=== PATIENT | female | born 1935 | race Caucasian/White ===

== ENCOUNTER → 2018-03-07 17:37 | Outpatient (CLI) | payer MEDICARE, SELFPAY ==
--- NOTE | 2018-03-07 | DI.MRI.S_ITS ---
PROCEDURE: MR KNEE RT WO CON INDICATIONS: RIGHT KNEE PAIN TECHNIQUE: Noncontrast sagittal PD fast spin echo and T2 fast spin echo with fat saturation, sagittal 3-D FLASH with fat saturation; coronal T1 spin echo and PD fast spin echo with fat saturation, and axial PD fast spin echo with fat saturation through the knee. COMPARISON: None. FINDINGS: Image quality: Excellent. Menisci: Truncated appearance of medial meniscus is seen with medial displacement medial meniscus bowing medial collateral ligament. Finding is suggestive of chronic complex tear involving body and posterior horn of medial meniscus versus prior partial meniscectomy. There is also oblique tear involving anterior horn and body of lateral meniscus extending to inferior articulating surface. Peripheral displacement lateral meniscus is also seen. The meniscal root ligaments appear intact. Cruciate ligaments: No normal anterior cruciate ligament is identified suggestive of chronic ACL rupture. Posterior cruciate ligament is intact. Medial structures: Low-grade proximal MCL sprain near its femoral insertion is noted. The posterior oblique ligament, semimembranosus tendon insertions, oblique popliteal ligament, and meniscocapsular junction appear intact. Visualized portions of the pes anserinus tendons appear normal. No abnormal bursal fluid. Lateral structures: The lateral collateral ligament, long and short heads of the biceps femoris tendon appear intact. The popliteus tendon appears normal; the popliteofibular ligament appears intact. The posterosuperior and anteroinferior popliteomeniscal fascicles appear intact. The arcuate and fabellofibular ligaments appear intact, on either side of the lateral inferior geniculate artery. Iliotibial band appears normal. Anterior structures: The quadriceps and patellar tendons appear intact. Patellar alignment is normal. No femoral trochlear dysplasia or ventral trochlear prominence. No edema in the infrapatellar fat pad. Bones and cartilage: There is [id number] tricompartmental osteoarthritis more prominent in the medial femorotibial compartment with loss of articulating cartilage is, subchondral sclerosis and edema, and marginal osteophyte formation. The patella cartilage is grossly intact. Joint space: There is moderate amount of joint effusion, no gross loose body.. No Barton's cyst. Normal appearing synovial plicae are incidentally noted. IMPRESSION: 1. Moderate to severe tricompartmental osteoarthritis most prominent in medial femoral tibial compartment. Moderate amount of joint effusion. No gross loose body. No fracture or dislocation. 2. Truncated appearance of medial meniscus which may indicate chronic complex tear versus partial meniscectomy involving body and posterior horn of medial meniscus. There is also complex oblique tear involving anterior horn and body of lateral meniscus extending to inferior articulating surface. 3. Nonvisualization of normal ACL fibers suggestive of chronic ACL rupture. PCL is grossly intact. 4. Low-grade proximal MCL sprain. Dictated by: Alton Thomason M.D. on 03/08/2018 at 8:33 Approved by: Alton Thomason M.D. on 03/08/2018 at 8:56
== END ==
PROVIDERS: PCP Family Medicine; Visit Provider Family Medicine
DX: M25.561 Pain in right knee (principal)
CPT/HCPCS: 73721

== ENCOUNTER → 2021-05-05 13:34 | Outpatient (CLI) | payer MEDICARE, SELFPAY ==
[2021-05-05 19:25] LABS: Add Manual Diff / Slide Review NO; Basophils Absolute Auto 100 /uL (0-100); Basophils Percent Auto 1.1 % (0-2); Eosinophils Absolute Auto 100 /uL (0-450); Eosinophils Percent Auto 2.7 % (2-4); Hematocrit 36.9 % (36-46); Hemoglobin 12.8 g/dL (12.0-16.0); Lymphocytes Absolute Auto 1600 /uL (1100-4500); Lymphocytes Percent Auto 34.2 % (25-40); Mean Corpuscular HGB Conc 34.6 % (30-36); Mean Corpuscular Hemoglobin 32.1 PG (26-34); Mean Corpuscular Volume 92.7 fL (80-100); Monocytes Absolute Auto 500 /uL (0-900); Monocytes Percent Auto 10.6 % (3-14); Neutrophils Absolute Auto 2400 /uL (1500-7000); Neutrophils Percent Auto 51.4 % (50-75); Platelet Count 233 X10^3/uL (150-400); Red Blood Cell Count 3.98 X10^6/uL (4.0-5.2); White Blood Cell Count 4.8 X10^3/uL (4.5-11.0)
[2021-05-05 19:33] LABS: HEMOLYSIS < 15 (0-50); Iron 92 ug/dL (37-170)
[2021-05-05 19:36] LABS: Alanine Aminotransferase 19 IU/L (<35); Albumin 4.4 g/dL (3.5-5.0); Albumin Globulin Ratio 1.7 (1.0-2.8); Alkaline Phosphatase 56 U/L (38-126); Aspartate Aminotransferase 26 IU/L (14-36); BUN Creatinine Ratio 18.9 (6-22); Bilirubin Total 0.4 mg/dL (0.2-1.3); Blood Urea Nitrogen 18 mg/dL (7-17); Calcium 9.9 mg/dL (8.4-10.2); Carbon Dioxide 32 mmol/L (22-32); Chloride 95 mmol/L (98-107); Globulin 2.6 g/dL (1.7-4.1); Glucose 96 mg/dL (80-110); HEMOLYSIS < 15 (0-50); Potassium 4.6 mmol/L (3.4-5.1); Sodium 131 mmol/L (137-145)
[2021-05-05 19:41] LABS: High Sensitivity CRP - Cardiac 2.4 mg/L (1.0-3.0)
[2021-05-05 19:44] LABS: Percent Iron Saturation 30 % (15-50); Total Iron Binding Capacity 308 ug/dL (265-497); Transferrin 247 mg/dL (206-381)
[2021-05-05 19:51] LABS: Free T4, Direct Thyroxine 1.26 ng/dL (0.78-2.19)
[2021-05-05 19:52] LABS: Free T3, Triiodothyronine Free 3.97 pg/mL (2.77-5.27)
[2021-05-05 19:55] LABS: Vitamin D 25 Hydroxy (D3) 69.3 ng/mL (30.0-100.0)
[2021-05-05 20:10] LABS: Ferritin 74 ng/mL (11-264)
[2021-05-07 08:47] LABS: Triiodothyronine T3 Total 102 ng/dL (71-180)
[2021-05-07 17:02] LABS: Anti Thyroglobulin Antibody <1.0 IU/mL (0.0-0.9); Thyroid Peroxidase Antibodies <8 IU/mL (0-34)
[2021-05-10 19:51] LABS: Triiodothyronine T3 Reverse 36.6 ng/dL (9.2-24.1)
== END ==
PROVIDERS: PCP Family Medicine; Visit Provider Family Medicine
DX: E03.9 Hypothyroidism, unspecified (principal); Z77.120 Contact with and (suspected) exposure to mold (toxic); F41.9 Anxiety disorder, unspecified; R53.82 Chronic fatigue, unspecified; G89.29 Other chronic pain; E63.9 Nutritional deficiency, unspecified
CPT/HCPCS: 80053; 82306; 82728; 83540; 83550; 84439; 84443; 84480; 84481; 84482; 85025; 86140; 86376; 86800

== ENCOUNTER → 2021-06-07 12:40 | Outpatient (CLI) | payer MEDICARE, SELFPAY ==
[2021-06-07 19:19] LABS: Alanine Aminotransferase 18 IU/L (<35); Albumin 4.1 g/dL (3.5-5.0); Albumin Globulin Ratio 1.6 (1.0-2.8); Alkaline Phosphatase 52 U/L (38-126); Aspartate Aminotransferase 25 IU/L (14-36); BUN Creatinine Ratio 22.7 (6-22); Bilirubin Total 0.2 mg/dL (0.2-1.3); Blood Urea Nitrogen 22 mg/dL (7-17); Calcium 9.6 mg/dL (8.4-10.2); Carbon Dioxide 32 mmol/L (22-32); Chloride 98 mmol/L (98-107); Estimated Glomerular Filt Rate 54.7 mL/min (>60); Globulin 2.6 g/dL (1.7-4.1); Glucose 98 mg/dL (80-110); HEMOLYSIS < 15 (0-50); Potassium 4.4 mmol/L (3.4-5.1); Sodium 133 mmol/L (137-145); Total Protein 6.7 g/dL (6.3-8.2)
== END ==
PROVIDERS: PCP Family Medicine; Referring Provider Family Medicine; Visit Provider Family Medicine
DX: E03.9 Hypothyroidism, unspecified (principal); E63.9 Nutritional deficiency, unspecified; F41.9 Anxiety disorder, unspecified; R53.82 Chronic fatigue, unspecified; Z77.120 Contact with and (suspected) exposure to mold (toxic)
CPT/HCPCS: 80053

== ENCOUNTER → 2021-06-28 13:00 | Outpatient (CLI) | payer MEDICARE, SELFPAY ==
[2021-06-28 18:41] LABS: Alanine Aminotransferase 35 IU/L (<35); Albumin 4.3 g/dL (3.5-5.0); Albumin Globulin Ratio 1.7 (1.0-2.8); Alkaline Phosphatase 49 U/L (38-126); Aspartate Aminotransferase 31 IU/L (14-36); Bilirubin Total 0.3 mg/dL (0.2-1.3); Blood Urea Nitrogen 20 mg/dL (7-17); Calcium 9.6 mg/dL (8.4-10.2); Carbon Dioxide 30 mmol/L (22-32); Chloride 97 mmol/L (98-107); Cholesterol 262 mg/dL (140-199); Estimated Glomerular Filt Rate > 60.0 mL/min (>60); Globulin 2.6 g/dL (1.7-4.1); Glucose 132 mg/dL (80-110); HDL Cholesterol 46 mg/dL (40-60); HEMOLYSIS < 15 (0-50); LDL Cholesterol Calculated 183 mg/dL (<100); Potassium 4.4 mmol/L (3.4-5.1); Sodium 133 mmol/L (137-145); Total Protein 6.9 g/dL (6.3-8.2); Triglycerides 163 mg/dL (35-150)
== END ==
PROVIDERS: PCP Family Medicine; Visit Provider Family Medicine
DX: E03.9 Hypothyroidism, unspecified (principal); I10 Essential (primary) hypertension
CPT/HCPCS: 80053; 80061; 82533

== ENCOUNTER → 2021-07-01 12:02 | Outpatient (CLI) | payer MEDICARE, SELFPAY ==
[2021-07-01 19:26] LABS: Collection Time Urine 24 Hours; Creatinine 24 Hour Urine 680 mg/day (800-1800); Creatinine Urine Random 45.3 mg/dL; Total Volume Urine 1500 mL
[2021-07-04 14:54] LABS: Creatinine, 24 Urine 603 mg/24 hr (800-1800); Creatinine,Urine 40.2 mg/dL (Not Estab.); Dopamine, Ur 24hr 96 ug/24 hr (0-510); Epinephrine, U 24hr 3 ug/24 hr (0-20); Norepinephrine Ur 24hr 26 ug/24 hr (0-135)
== END ==
PROVIDERS: PCP Family Medicine; Visit Provider Nurse Practitioner
DX: I10 Essential (primary) hypertension (principal)
CPT/HCPCS: 82384; 82570

== ENCOUNTER → 2021-09-12 11:15 | Outpatient (CLI) | payer MEDICARE, SELFPAY ==
[2021-09-12 18:40] LABS: Alanine Aminotransferase 29 IU/L (<35); Albumin 4.4 g/dL (3.5-5.0); Albumin Globulin Ratio 1.6 (1.0-2.8); Alkaline Phosphatase 51 U/L (38-126); Aspartate Aminotransferase 26 IU/L (14-36); BUN Creatinine Ratio 21.7 (6-22); Bilirubin Total 0.4 mg/dL (0.2-1.3); Blood Urea Nitrogen 18 mg/dL (7-17); Calcium 9.5 mg/dL (8.4-10.2); Carbon Dioxide 27 mmol/L (22-32); Chloride 97 mmol/L (98-107); Estimated Glomerular Filt Rate > 60 mL/min (>60); Globulin 2.8 g/dL (1.7-4.1); Glucose 93 mg/dL (80-110); HEMOLYSIS < 15 (0-50); Potassium 4.4 mmol/L (3.4-5.1); Sodium 134 mmol/L (137-145); Total Protein 7.2 g/dL (6.3-8.2); Uric Acid 3.8 mg/dL (2.5-6.2)
[2021-09-12 19:01] LABS: Free T3, Triiodothyronine Free 4.01 pg/mL (2.77-5.27); Free T4, Direct Thyroxine 1.42 ng/dL (0.78-2.19); Progesterone, Total 0.57 ng/mL
[2021-09-12 19:11] LABS: Thyroid Stimulating Hormone 3.45 uIU/mL (0.47-4.68)
[2021-09-12 19:13] LABS: Estradiol, Total 20.8 pg/mL
[2021-09-13 03:59] LABS: Homocysteine 13.1 umol/L (0.0-21.3)
[2021-09-13 06:33] LABS: Sex Hormone Binding Globulin 88.4 nmol/L (17.3-125.0); Triiodothyronine T3 Total 128 ng/dL (71-180)
[2021-09-13 09:04] LABS: Dehydroepiandrosterone Sulfate 99.5 ug/dL (13.9-142.8)
[2021-09-13 17:17] LABS: Cadmium, Blood 0.6 ug/L (0.0-1.2); Lead, Blood < 1 ug/dL (0-4); Mercury, Blood 2.6 ug/L (0.0-14.9)
[2021-09-13 18:27] LABS: Zinc 52 ug/dL (44-115)
[2021-09-16 06:28] LABS: Vitamin B6 20.9 ug/L (3.4-65.2)
[2021-09-16 11:01] LABS: Triiodothyronine T3 Reverse 22.2 ng/dL (9.2-24.1)
[2021-09-18 19:45] LABS: Renin Activity 0.242 ng/mL/hr (0.167-5.380)
[2021-09-20 11:41] LABS: Percent Free Testosterone 1.59 % (0.50-2.80); Testosterone Free 0.21 ng/dL (0.10-0.85); Testosterone Total 12.9 ng/dL (7.0-40.0)
[2021-09-22 13:29] LABS: Dehydroepiandrosterone (DHEA) 99.5
== END ==
PROVIDERS: Family Medicine; PCP Family Medicine
DX: I10 Essential (primary) hypertension (principal); E03.9 Hypothyroidism, unspecified; E63.9 Nutritional deficiency, unspecified; R05.8 Other specified cough; R53.82 Chronic fatigue, unspecified; Z77.120 Contact with and (suspected) exposure to mold (toxic)
CPT/HCPCS: 80053; 82088; 82175; 82300; 82525; 82542; 82627; 82670; 83090; 83655; 83735; 83825; 84144; 84207; 84244; 84270; 84402; 84403; 84439; 84443; 84480; 84481; 84482; 84550; 84630

== ENCOUNTER → 2021-10-12 14:00 | Outpatient (CLI) | payer MEDICARE, SELFPAY ==
[2021-10-12 18:54] LABS: Add Manual Diff / Slide Review NO; Basophils Absolute Auto 0 /uL (0-100); Basophils Percent Auto 0.9 % (0-2); Eosinophils Absolute Auto 100 /uL (0-450); Eosinophils Percent Auto 1.7 % (2-4); Hematocrit 37.4 % (36-46); Hemoglobin 12.9 g/dL (12.0-16.0); Lymphocytes Absolute Auto 1300 /uL (1100-4500); Lymphocytes Percent Auto 24.2 % (25-40); Mean Corpuscular HGB Conc 34.4 % (30-36); Mean Corpuscular Hemoglobin 32.2 PG (26-34); Mean Corpuscular Volume 93.5 fL (80-100); Monocytes Absolute Auto 500 /uL (0-900); Monocytes Percent Auto 8.3 % (3-14); Neutrophils Absolute Auto 3600 /uL (1500-7000); Neutrophils Percent Auto 64.9 % (50-75); Platelet Count 267 X10^3/uL (150-400); Red Cell Distribution Width 14.4 % (11.6-14.8); White Blood Cell Count 5.5 X10^3/uL (4.5-11.0)
[2021-10-12 19:01] LABS: Alanine Aminotransferase 17 IU/L (<35); Albumin 4.5 g/dL (3.5-5.0); Albumin Globulin Ratio 1.4 (1.0-2.8); Alkaline Phosphatase 45 U/L (38-126); Aspartate Aminotransferase 56 IU/L (14-36); BUN Creatinine Ratio 23.3 (6-22); Bilirubin Total 0.5 mg/dL (0.2-1.3); Blood Urea Nitrogen 21 mg/dL (7-17); Calcium 9.4 mg/dL (8.4-10.2); Carbon Dioxide 24 mmol/L (22-32); Chloride 96 mmol/L (98-107); Estimated Glomerular Filt Rate > 60 mL/min (>60); Globulin 3.3 g/dL (1.7-4.1); Glucose 113 mg/dL (80-110); HEMOLYSIS 21 (0-50); Lipase 120 U/L (23-300); Potassium 3.8 mmol/L (3.4-5.1); Sodium 133 mmol/L (137-145); Total Protein 7.8 g/dL (6.3-8.2)
[2021-10-14 12:36] LABS: Interpretation Negative (Negative)
== END ==
PROVIDERS: PCP Family Medicine; Visit Provider Physician Assistant
DX: R10.9 Unspecified abdominal pain (principal); Z86.19 Personal history of other infectious and parasitic diseases
CPT/HCPCS: 80053; 83013; 83690; 85025

== ENCOUNTER → 2021-10-31 13:24 | Outpatient (CLI) | payer MEDICARE, SELFPAY ==
[2021-10-31 20:06] LABS: Add Manual Diff / Slide Review NO; Basophils Absolute Auto 0 /uL (0-100); Basophils Percent Auto 0.6 % (0-2); Eosinophils Absolute Auto 100 /uL (0-450); Eosinophils Percent Auto 1.4 % (2-4); Lymphocytes Absolute Auto 1400 /uL (1100-4500); Lymphocytes Percent Auto 26.5 % (25-40); Mean Corpuscular HGB Conc 34.2 % (30-36); Mean Corpuscular Hemoglobin 31.8 PG (26-34); Mean Corpuscular Volume 92.8 fL (80-100); Monocytes Absolute Auto 500 /uL (0-900); Monocytes Percent Auto 9.5 % (3-14); Neutrophils Absolute Auto 3400 /uL (1500-7000); Platelet Count 256 X10^3/uL (150-400); Red Blood Cell Count 3.77 X10^6/uL (4.0-5.2); Red Cell Distribution Width 14.1 % (11.6-14.8); White Blood Cell Count 5.5 X10^3/uL (4.5-11.0)
[2021-10-31 20:31] LABS: Alanine Aminotransferase 18 IU/L (<35); Albumin 4.5 g/dL (3.5-5.0); Albumin Globulin Ratio 1.6 (1.0-2.8); Alkaline Phosphatase 55 U/L (38-126); Aspartate Aminotransferase 24 IU/L (14-36); BUN Creatinine Ratio 22.1 (6-22); Bilirubin Total 0.4 mg/dL (0.2-1.3); Blood Urea Nitrogen 19 mg/dL (7-17); Calcium 9.7 mg/dL (8.4-10.2); Carbon Dioxide 26 mmol/L (22-32); Chloride 98 mmol/L (98-107); Estimated Glomerular Filt Rate > 60 mL/min (>60); Gamma Glutamyl Transpeptidase 18 U/L (12-43); Globulin 2.8 g/dL (1.7-4.1); Glucose 114 mg/dL (80-110); HEMOLYSIS < 15 (0-50); Potassium 4.4 mmol/L (3.4-5.1); Sodium 131 mmol/L (137-145); Total Protein 7.3 g/dL (6.3-8.2)
[2021-11-01 08:11] LABS: Homocysteine 12.5 umol/L (0.0-21.3)
[2021-11-01 16:08] LABS: Cadmium, Blood 0.6 ug/L (0.0-1.2); Lead, Blood < 1 ug/dL (0-4); Mercury, Blood 3.1 ug/L (0.0-14.9)
[2021-11-02 13:34] LABS: Zinc,RBC 1398 ug/dL (878-1660)
== END ==
PROVIDERS: PCP Family Medicine; Visit Provider Family Medicine
DX: I10 Essential (primary) hypertension (principal); C44.91 Basal cell carcinoma of skin, unspecified; E63.9 Nutritional deficiency, unspecified; F41.9 Anxiety disorder, unspecified; K59.9 Functional intestinal disorder, unspecified; R53.82 Chronic fatigue, unspecified
CPT/HCPCS: 80053; 82175; 82300; 82977; 83090; 83655; 83825; 84630; 85025

== ENCOUNTER → 2021-11-01 08:00 | Outpatient (CLI) | payer MEDICARE, SELFPAY ==
[2021-11-01 21:26] LABS: Adenovirus F 40/41 Not Detected (Not Detect); Astrovirus Not Detected (Not Detect); Campylobacter Not Detected (Not Detect); Clostridium difficile toxin AB Not Detected (Not Detect); Cryptosporidium Not Detected (Not Detect); Cyclospora cayetanensis Not Detected (Not Detect); Entamoeba histolytica Not Detected (Not Detect); Enteroaggregative E.coli Not Detected (Not Detect); Enteropathogenic E.coli Not Detected (Not Detect); Enterotoxigenic E.coli It/st Not Detected (Not Detect); Giardia lamblia Not Detected (Not Detect); Norovirus GI/GII Not Detected (Not Detect); Plesiomonsa shigelloides Not Detected (Not Detect); Rotavirus A Not Detected (Not Detect); Salmonella Not Detected (Not Detect); Sapovirus Not Detected (Not Detect); Shiga-like toxin-prod E.coli Not Detected (Not Detect); Shigella/Enteroinvasive E.coli Not Detected (Not Detect); Vibrio Not Detected (Not Detect); Vibrio cholerae Not Detected (Not Detect); Yersinia enterocolitica Not Detected (Not Detect)
[2021-11-02 08:52] LABS: Fecal Immunochemical Test Negative (Negative)
== END ==
PROVIDERS: PCP Family Medicine; Visit Provider Family Medicine
DX: R10.9 Unspecified abdominal pain (principal); F41.9 Anxiety disorder, unspecified; G47.9 Sleep disorder, unspecified; G89.29 Other chronic pain; K59.9 Functional intestinal disorder, unspecified; R53.82 Chronic fatigue, unspecified
CPT/HCPCS: 82274; 87205; 87507

== ENCOUNTER → 2021-11-07 09:59 | Outpatient (CLI) | payer MEDICARE, SELFPAY | PROVIDERS: PCP Family Medicine; Visit Provider Family Medicine | DX: F41.9 Anxiety disorder, unspecified (principal); G47.9 Sleep disorder, unspecified; G89.29 Other chronic pain; K59.9 Functional intestinal disorder, unspecified; R10.9 Unspecified abdominal pain; R53.82 Chronic fatigue, unspecified | CPT/HCPCS: 82710 ==

== ENCOUNTER → 2021-11-18 11:47 | Outpatient (CLI) | payer MEDICARE, SELFPAY ==
[2021-11-25 01:14] LABS: Ceruloplasmin 24.1 mg/dL (19.0-39.0)
== END ==
PROVIDERS: PCP Family Medicine; Visit Provider Family Medicine
DX: D64.9 Anemia, unspecified (principal); E63.9 Nutritional deficiency, unspecified; F41.9 Anxiety disorder, unspecified; G89.29 Other chronic pain; I10 Essential (primary) hypertension; K59.9 Functional intestinal disorder, unspecified; R53.82 Chronic fatigue, unspecified; R82.90 Unspecified abnormal findings in urine
CPT/HCPCS: 82390; 82525

== ENCOUNTER → 2021-11-22 11:32 | Outpatient (CLI) | payer MEDICARE, SELFPAY ==
[2021-11-22 18:48] LABS: Collection Time Urine 24 Hours; Creatinine 24 Hour Urine 1056 mg/day (800-1800); Total Volume Urine 2200 mL
[2021-12-01 15:00] LABS: Copper, Urine 7; Creatinine, Urine 0.48
[2021-12-01 15:01] LABS: Copper/Creatinine 15
[2021-12-01 15:04] LABS: Creatinine, Urine 0.46
[2021-12-01 15:05] LABS: Inorg Arsenic/ Creat Ratio <22
== END ==
PROVIDERS: PCP Family Medicine; Visit Provider Family Medicine
DX: D64.9 Anemia, unspecified (principal); E63.9 Nutritional deficiency, unspecified; F41.9 Anxiety disorder, unspecified; G89.29 Other chronic pain; I10 Essential (primary) hypertension; K59.9 Functional intestinal disorder, unspecified; R53.82 Chronic fatigue, unspecified; R82.90 Unspecified abnormal findings in urine
CPT/HCPCS: 82175; 82525; 82570

== ENCOUNTER 2022-07-13 12:13 | Inpatient (IN) | payer MEDICARE, SELFPAY ==
[2022-07-13] VITALS (24 sets, daily range): BP systolic 139–199; BP diastolic 65–127; PULSE 50–82; RESP 8–22; TEMP 36.5–36.8; O2SAT 95–100; BMI 23.1; BMI 23.6
--- NOTE | 2022-07-13 12:30 | ED_ITS ---
HPI - General Adult General Chief complaint: Syncope Stated complaint: Near syncope,1 week of generalized weakness Time Seen by Provider: 07/13/22 12:18 History of Present Illness HPI narrative: 86-year-old female nonsmoker with history of hypertension, osteoarthritis, H pylori, generalized anxiety and hypothyroid presents by air medical transport for evaluation of dizziness, lightheadedness and fatigue along with near-syncope and blood pressure in the 80s. She is felt generally unwell for least the past few days. At 1 point today she was change position and attempted to stand up and nearly passed out. EMS evaluated and her to be orthostatic with a blood pressure drop to the 80s upon standing. She denies any fever chills. She has no chest pain or shortness of breath. Related Data Home Medications Medication Instructions Recorded Confirmed atenolol 100 mg tablet 100 mg PO DAILY 09/06/21 07/13/22 benzonatate 100 mg capsule 100 mg PO TID PRN Cough 09/06/21 07/13/22 thyroid (pork) 15 mg tablet (TRAFFIC SERGEANT 15 mg PO DAILY 09/06/21 07/13/22 Thyroid) thyroid (pork) 90 mg tablet (TRAFFIC SERGEANT 90 mg PO DAILY 09/06/21 07/13/22 Thyroid) hydralazine 50 mg tablet 50 mg PO Q6H 11/17/21 07/13/22 losartan 100 mg tablet 50 mg PO BID 11/17/21 07/13/22 Previous Rx's Medication Instructions Recorded lorazepam 0.5 mg tablet 0.5 mg PO .hs prn #30 tabs 01/19/22 hylan g-f 20 16 mg/2 mL 16 mg (2 mL) intra-articular ONCE 05/31/22 intra-articular syringe (Synvisc) #6 mL Allergies Allergy/AdvReac Type Severity Reaction Status Date / Time amlodipine Allergy Mild Verified 05/27/21 15:05 epinephrine Allergy Mild Verified 06/05/22 13:23 hydrochlorothiazide Allergy Mild Verified 05/27/21 15:05 ciprofloxacin [From CIPRO] Allergy Unknown Verified 05/27/21 15:05 Sulfa (Sulfonamide Allergy Unknown Verified 05/27/21 15:05 Antibiotics) [SULFA (SULFONAMIDE ANTIBIOTICS)] epinipherine AdvReac Severe Palpitation Uncoded 03/06/22 11:00 s Review of Systems Review of Systems Narrative: GENERAL: See HPI HEENT: Denies sinus pain, ear pain, sore throat, difficulty swallowing, dizziness. RESPIRATORY: Denies dyspnea, cough, wheezing, hemoptysis, sputum. CARDIOVASCULAR: Denies chest pain, palpitations, orthopnea, edema, GASTROINTESTINAL: See HPI : Denies dysuria, frequency, incontinence, hematuria, urinary retention. MUSCULOSKELETAL: denies weakness, joint pain, or bony pain SKIN: Denies rash, skin lesions, or other NEUROLOGIC: Denies weakness, headache, numbness, change in speech, confusion, seizures, incoordination. PSYCHIATRIC: No concerning psychosocial issues. 12 point review of systems is negative except for those stated above Patient History Medical History Cervicalgia Chicken pox (~194) Fractures (~194) Heavy menstrual period History of candidiasis Hypothyroidism (~2009) Measles (~194) Mumps (~194) Tension headache (~194) Unilateral primary osteoarthritis, right knee Surgical History Anesthesia History of bunionectomy (~1968) History of cataract removal with insertion of prosthetic lens (~2017) History of oral surgery History of oral surgery (~194) History of tonsillectomy (~1941) [place] teeth removed (~1950) Family History Father History of heart disease Hypertension Mother Breast cancer Mental health problem Family/Other Multiple sclerosis Family/Other Mental health problem Social History household members: none Smoking Status: Never smoker alcohol intake: never Smoking Status: Never smoker Exam Narrative Exam Narrative: GENERAL: 86 year old patient appears stated age. Well-developed patient, in mild distress. HEAD: Atraumatic. Normocephalic. EYES: Pupils equal round and reactive. Extraocular motions intact. No scleral icterus. No injection or drainage. ENT: Nose without bleeding, purulent drainage. Throat without erythema, tonsillar hypertrophy or exudate. Airway patent. NECK: Trachea midline. Non tender CARDIOVASCULAR: Regular rate and rhythm without murmurs, gallops, or rubs. RESPIRATORY: Clear to auscultation. Breath sounds equal bilaterally. No wheezes, rales, or rhonchi. GASTROINTESTINAL: Abdomen soft, non-tender, nondistended. RECTAL: Heme +, performed with patient permission and female nursing telephoto engineer EXTREMITIES: No edema or joint tenderness. BACK: Nontender without deformity or crepitance. No flank tenderness. NEURO: AOx3. SKIN: No rash or erythema of visible areas Initial Vital Signs Initial Vital Signs: Vital Signs Pulse Rate 55 L 07/13/22 12:19 Pulse Oximetry 100 07/13/22 12:19 Course Orders Ordered: Acetaminophen (Acetaminophen 325 Mg Tablet) 650 mg PO Q6H PRN PRN Reason: Fever/Mild Pain (1-3) Naloxone HCl (Naloxone 0.4 Mg/Ml Vial) 0.2 mg IV Q2MIN PRN PRN Reason: Opiate Reversal Stored In Pharmacy 1 each PO PRN PRN PRN Reason: PROTOCOL Thyroid, Desiccated (15mg Tablet) 1 each PO DAILY@0700 [facility] Last Admin: 07/14/22 13:06 Dose: 1 each Documented By: KEITH Thyroid, Desiccated (90mg Tablet) 1 each PO DAILY@0700 [facility] Last Admin: 07/14/22 13:05 Dose: 1 each Documented By: KEITH Ondansetron HCl (Ondansetron 4 Mg/2 Ml Inj) 4 mg IV Q8HR PRN PRN Reason: Nausea And Vomiting Pantoprazole Sodium (Pantoprazole 40 Mg Vial) 40 mg IV BID [facility] Last Admin: 07/14/22 09:59 Dose: 40 mg Documented By: KEITH Sodium Chloride (Sodium Chloride 0.9% Flush) 10 ml IV PRN PRN PRN Reason: Flush Sodium Chloride (Sodium Chloride 0.9% Flush) 10 ml IV BID [facility] Last Admin: 07/14/22 09:59 Dose: 10 ml Documented By: KEITH Discontinued Medications Sodium Chloride (Normal Saline 0.9%) 1,000 mls @ 150 mls/hr IV CONT [facility] Last Infusion: 07/13/22 19:04 Dose: 0 mls/hr Documented By: Admin: 07/13/22 13:12 Dose: 150 mls/hr Documented By: MELI Pantoprazole Sodium (Pantoprazole 40 Mg Vial) 40 mg IV BID [facility] Last Admin: 07/13/22 19:59 Dose: 40 mg Documented By: MP Polyethylene Glycol/Electrolytes (Tpi0817/Sod Sulf,Bicarb,Cl/Kcl 4,000 Ml Solution) 4,000 ml PO NOW ONE Stop: 07/14/22 12:32 Thyroid (Thyroid, Pork 30 Mg Tablet) 15 mg PO DAILY RENEE Thyroid (Thyroid, Pork 30 Mg Tablet) 105 mg PO DAILY RENEE Last Admin: 07/14/22 10:02 Dose: Not Given Documented By: KEITH Thyroid (Thyroid, Pork 30 Mg Tablet) 15 mg PO DAILY RENEE Vital Signs Vital signs: Vital Signs - 8 hr 07/13/22 12:23 07/13/22 12:19 07/13/22 12:30 Temperature 97.7 F Pulse Rate 54 L 55 L 69 Respiratory Rate 16 22 Blood Pressure 168/74 H Pulse Oximetry 99 100 99 Oxygen Delivery Method Room Air 07/13/22 12:35 07/13/22 12:35 Temperature Pulse Rate 50 L Respiratory Rate Blood Pressure 165/71 H Pulse Oximetry 99 Oxygen Delivery Method Medical Decision Making Lab Data 07/13/22 12:30 07/13/22 12:30 Labs: Lab Results 07/13/22 07/13/22 07/13/22 Range/Units 12:30 12:30 12:30 WBC 4.2 L (4.5-11.0) X10^3/uL RBC 2.50 L (4.0-5.2) X10^6/uL Hgb 8.0 L (12.0-16.0) g/dL Hct 23.5 L (36-46) % MCV 94.0 (80-100) fL MCH 32.2 (26-34) PG MCHC 34.2 (30-36) % RDW 14.0 (11.6-14.8) % Plt Count 206 (150-400) X10^3/uL Neut % (Auto) 68.8 (50-75) % Lymph % (Auto) 20.9 L (25-40) % Calvert % (Auto) 8.0 (3-14) % Eos % (Auto) 1.5 L (2-4) % Baso % (Auto) 0.8 (0-2) % Neut # (Auto) 2900 (2050-7334) /uL Lymph # (Auto) 900 L (6112-0881) /uL Calvert # (Auto) 300 (0-900) /uL Eos # (Auto) 100 (0-450) /uL Baso # (Auto) 0 (0-100) /uL Percent Retic (1.1-2.6) % PT (10.1-12.7) SECONDS INR (0.9-1.3) Sodium 129 L (137-145) mmol/L Potassium 4.2 (3.4-5.1) mmol/L Chloride 98 (98-107) mmol/L Carbon Dioxide 24 (22-32) mmol/L BUN 24 H (7-17) mg/dL Creatinine 0.66 (0.52-1.04) mg/dL Estimated GFR > 60 (>60) mL/min BUN/Creatinine Ratio 36.4 H (6-22) Glucose 126 H (80-110) mg/dL Calcium 8.6 (8.4-10.2) mg/dL Iron (37-170) ug/dL TIBC (265-497) ug/dL % Saturation (15-50) % Transferrin (206-381) mg/dL Total Bilirubin 0.6 (0.2-1.3) mg/dL AST 33 (14-36) IU/L ALT 24 (<35) IU/L Alkaline Phosphatase 27 L (38-126) U/L Total Creatine Kinase 53 (30-135) U/L CK-MB (CK-2) TNP CK-MB (CK-2) Rel Index TNP Troponin I < 0.012 (0.01-0.034) ng/mL NT-Pro-B Natriuret Pep 612 H (<450) pg/mL Total Protein 6.6 (6.3-8.2) g/dL Albumin 3.9 (3.5-5.0) g/dL Globulin 2.7 (1.7-4.1) g/dL Albumin/Globulin Ratio 1.4 (1.0-2.8) Lipase 108 (23-300) U/L Procalcitonin 0.05 (<0.5) ng/mL Blood Type Antibody Screen Antibody Identification Crossmatch 07/13/22 07/13/22 07/13/22 Range/Units 12:30 12:30 12:30 WBC (4.5-11.0) X10^3/uL RBC (4.0-5.2) X10^6/uL Hgb (12.0-16.0) g/dL Hct (36-46) % MCV (80-100) fL MCH (26-34) PG MCHC (30-36) % RDW (11.6-14.8) % Plt Count (150-400) X10^3/uL Neut % (Auto) (50-75) % Lymph % (Auto) (25-40) % [place]vert % (Auto) (3-14) % Eos % (Auto) (2-4) % Baso % (Auto) (0-2) % Neut # (Auto) (7903-2499) /uL Lymph # (Auto) (5543-2219) /uL Calvert # (Auto) (0-900) /uL Eos # (Auto) (0-450) /uL Baso # (Auto) (0-100) /uL Percent Retic 3.1 H (1.1-2.6) % PT 12.4 (10.1-12.7) SECONDS INR 1.1 (0.9-1.3) Sodium (137-145) mmol/L Potassium (3.4-5.1) mmol/L Chloride (98-107) mmol/L Carbon Dioxide (22-32) mmol/L BUN (7-17) mg/dL Creatinine (0.52-1.04) mg/dL Estimated GFR (>60) mL/min BUN/Creatinine Ratio (6-22) Glucose (80-110) mg/dL Calcium (8.4-10.2) mg/dL Iron 96 (37-170) ug/dL TIBC 266 (265-497) ug/dL % Saturation 36 (15-50) % Transferrin 188 L (206-381) mg/dL Total Bilirubin (0.2-1.3) mg/dL AST (14-36) IU/L ALT (<35) IU/L Alkaline Phosphatase (38-126) U/L Total Creatine Kinase (30-135) U/L CK-MB (CK-2) CK-MB (CK-2) Rel Index Troponin I (0.01-0.034) ng/mL NT-Pro-B Natriuret Pep (<450) pg/mL Total Protein (6.3-8.2) g/dL Albumin (3.5-5.0) g/dL Globulin (1.7-4.1) g/dL Albumin/Globulin Ratio (1.0-2.8) Lipase (23-300) U/L Procalcitonin (<0.5) ng/mL Blood Type Antibody Screen Antibody Identification Crossmatch 07/13/22 07/13/22 Range/Units 14:39 15:43 WBC (4.5-11.0) X10^3/uL RBC (4.0-5.2) X10^6/uL Hgb 7.3 L (12.0-16.0) g/dL Hct 21.3 L (36-46) % MCV (80-100) fL MCH (26-34) PG MCHC (30-36) % RDW (11.6-14.8) % Plt Count (150-400) X10^3/uL Neut % (Auto) (50-75) % Lymph % (Auto) (25-40) % [place] % (Auto) (3-14) % Eos % (Auto) (2-4) % Baso % (Auto) (0-2) % Neut # (Auto) (2182-1957) /uL Lymph # (Auto) (2606-7389) /uL [place] # (Auto) (0-900) /uL Eos # (Auto) (0-450) /uL Baso # (Auto) (0-100) /uL Percent Retic (1.1-2.6) % PT (10.1-12.7) SECONDS INR (0.9-1.3) Sodium (137-145) mmol/L Potassium (3.4-5.1) mmol/L Chloride (98-107) mmol/L Carbon Dioxide (22-32) mmol/L BUN (7-17) mg/dL Creatinine (0.52-1.04) mg/dL Estimated GFR (>60) mL/min BUN/Creatinine Ratio (6-22) Glucose (80-110) mg/dL Calcium (8.4-10.2) mg/dL Iron (37-170) ug/dL TIBC (265-497) ug/dL % Saturation (15-50) % Transferrin (206-381) mg/dL Total Bilirubin (0.2-1.3) mg/dL AST (14-36) IU/L ALT (<35) IU/L Alkaline Phosphatase (38-126) U/L Total Creatine Kinase (30-135) U/L CK-MB (CK-2) CK-MB (CK-2) Rel Index Troponin I (0.01-0.034) ng/mL NT-Pro-B Natriuret Pep (<450) pg/mL Total Protein (6.3-8.2) g/dL Albumin (3.5-5.0) g/dL Globulin (1.7-4.1) g/dL Albumin/Globulin Ratio (1.0-2.8) Lipase (23-300) U/L Procalcitonin (<0.5) ng/mL Blood Type A Negative Antibody Screen Positive Antibody Identification Anti-D Crossmatch See Detail Point of Care Testing Glucose POC 135 Point of care testing: Point of Care Testing Glucose POC 135 MDM Narrative Medical decision making narrative: [86] year old patient presents with generalized weakness, near-syncope, nausea, vomiting Multiple etiologies for patient's symptoms considered including, but not limited to: [Dehydration, electrolyte abnormality, anemia, kidney failure versus other] Prior Charts reviewed in our EMR Primary Historian: patient Labs reviewed and interpreted by myself: Hematocrit noted to be significantly below her baseline, after 2 hours repeat demonstrates further drop, Imaging reviewed: CT of abdomen and pelvis without significant findings Consultations: General surgery consulted given GI bleed resulting in symptomatic anemia, she is happy to be involved in consultation, requests admission to hospitalist Frail elderly female flown here by air medical transport for evaluation weakness, near-syncope and vomiting blood pressure in the field of the 80s. She is found to have symptomatic anemia with dropping hematocrit and will require hospitalization for transfusions, for further stabilization for condition and likely endoscopy Discharge Plan Departure Patient Disposition: Admitted As Inpatient Clinical Impression: Acute GI bleeding, Anemia, Near syncope Admit Date/Time: 07/13/22 16:51 Admit Provider: Jean Felix
--- NOTE | 2022-07-13 12:37 | DI.RAD.S_ITS ---
PROCEDURE: XR CHEST 1V INDICATIONS: weakness TECHNIQUE: One view of the chest was acquired. COMPARISON: [facility], , CHEST 1 VIEW, 06/27/2017, 18:22. FINDINGS: Surgical changes and devices: None. Lungs and pleura: Lungs are clear. No pleural effusions or pneumothorax. Mediastinum: Mediastinal contours appear normal. Heart size is normal. Bones and chest wall: No suspicious bony lesions. Overlying soft tissues appear unremarkable. IMPRESSION: No evidence acute pulmonary process. Dictated by: Rahul Velazquez M.D. on 07/13/2022 at 12:55 Approved by: Rahul Velazquez M.D. on 07/13/2022 at 12:55
[2022-07-13 12:47] LABS: Add Manual Diff / Slide Review NO; Basophils Absolute Auto 0 /uL (0-100); Basophils Percent Auto 0.8 % (0-2); Eosinophils Absolute Auto 100 /uL (0-450); Eosinophils Percent Auto 1.5 % (2-4); Hematocrit 23.5 % (36-46); Lymphocytes Absolute Auto 900 /uL (1100-4500); Lymphocytes Percent Auto 20.9 % (25-40); Mean Corpuscular HGB Conc 34.2 % (30-36); Mean Corpuscular Hemoglobin 32.2 PG (26-34); Monocytes Absolute Auto 300 /uL (0-900); Neutrophils Absolute Auto 2900 /uL (1500-7000); Neutrophils Percent Auto 68.8 % (50-75); Platelet Count 206 X10^3/uL (150-400); White Blood Cell Count 4.2 X10^3/uL (4.5-11.0)
[2022-07-13 12:57] LABS: Alanine Aminotransferase 24 IU/L (<35); Albumin 3.9 g/dL (3.5-5.0); Albumin Globulin Ratio 1.4 (1.0-2.8); BUN Creatinine Ratio 36.4 (6-22); Bilirubin Total 0.6 mg/dL (0.2-1.3); Blood Urea Nitrogen 24 mg/dL (7-17); Calcium 8.6 mg/dL (8.4-10.2); Carbon Dioxide 24 mmol/L (22-32); Chloride 98 mmol/L (98-107); Creatine Kinase 53 U/L (30-135); Estimated Glomerular Filt Rate > 60 mL/min (>60); Globulin 2.7 g/dL (1.7-4.1); Glucose 126 mg/dL (80-110); Lipase 108 U/L (23-300); Sodium 129 mmol/L (137-145); Total Protein 6.6 g/dL (6.3-8.2)
[2022-07-13 13:10] LABS: Troponin I < 0.012 ng/mL (0.01-0.034)
[2022-07-13] MEDS: SODIUM CHLORIDE 0.9% 1,000 ML 150 ML IV (13:12)
[2022-07-13 13:14] LABS: Procalcitonin 0.05 ng/mL (<0.5)
[2022-07-13 13:20] LABS: Aspartate Aminotransferase 33 IU/L (14-36); HEMOLYSIS 78 (0-50); Potassium 4.2 mmol/L (3.4-5.1)
[2022-07-13 13:21] LABS: Alkaline Phosphatase 27 U/L (38-126)
[2022-07-13 13:23] LABS: NT-proBNP (BNP-Adult 18+) 612 pg/mL (<450)
--- NOTE | 2022-07-13 14:03 | PC.NURSE ---
division director md for rectal exam and heme stool testing
[2022-07-13 16:03] LABS: Hematocrit 21.3 % (36-46); Hemoglobin 7.3 g/dL (12.0-16.0)
[2022-07-13 17:25] LABS: INR 1.1 (0.9-1.3); Prothrombin Time 12.4 SECONDS (10.1-12.7)
--- NOTE | 2022-07-13 17:36 | P.HP_ITS ---
History of Present Illness History of Present Illness Date Patient Seen: 07/13/22 Time Patient Seen: 17:00 Chief complaint: Near syncope,1 week of generalized weakness Narrative: Ms. Miller is an 86W with PMH HTN, hypothyroidism, history of iron deficiency anemia who presents to the hospital with dizziness, presyncope. She states she has been feeling tired and generalized fatigue for nearly a week. She has had normal appetite. No nausea or vomiting or abdominal pain. No cough or shortness of breath. She thinks she has had low grade fever. She has noted no blood in her stool or any black tarry stool. She has never had an EGD or colonoscopy. She does not drink alcohol, she does not take NSAIDs. She has noted a couple pound weight loss. EMS evaluated after being called and noted upon standing her blood pressure dropped to the 80s and she became symptomatic. In the ED workup was done, vitals notable for afebrie, blood pressure in the systolic 140s-160s, heart rate in the 50s. Labs notable for hgb initially of 8.0, recheck 7.3, wbc 4.2, plts 206. Na 129, creatinine 0.66. Rectal exam noted guaiac positive brown stoool. She was ordered for blood and admitted for further treatment. Patient History Medical History Cervicalgia Chicken pox (~1940) Fractures (~194) Heavy menstrual period History of candidiasis Hypothyroidism (~2009) Measles (~194) Mumps (~194) Tension headache (~194) Unilateral primary osteoarthritis, right knee Surgical History Anesthesia History of bunionectomy (~1968) History of cataract removal with insertion of prosthetic lens (~2018) History of oral surgery History of oral surgery (~194) History of tonsillectomy (~194) [place] teeth removed (~1950) Family & Social History Family History Father History of heart disease Hypertension Mother Breast cancer Mental health problem Family/Other Multiple sclerosis Family/Other Mental health problem Safety & Behavioral: Feels Safe in Current Yes Environment Been Physically Hurt or No Threatened By a Person Tobacco & Substance use: Smoking Status Never smoker Meds Home Medications and Allergies Home Medications Medication Instructions Recorded Confirmed Type atenolol 100 mg tablet 100 mg PO DAILY 09/06/21 06/05/22 History benzonatate 100 mg capsule 100 mg PO TID 09/06/21 06/05/22 History thyroid (pork) 15 mg tablet ([employer] 15 mg PO DAILY 09/06/21 06/05/22 History Thyroid) thyroid (pork) 90 mg tablet ([employer] 90 mg PO DAILY 09/06/21 06/05/22 History Thyroid) hydralazine 50 mg tablet 50 mg PO Q6H 11/17/21 06/05/22 History losartan 100 mg tablet 50 mg PO BID 11/17/21 06/05/22 History lorazepam 0.5 mg tablet 0.5 mg PO .hs prn #30 tabs 01/19/22 06/05/22 Rx hylan g-f 20 16 mg/2 mL 16 mg (2 mL) intra-articular ONCE 05/31/22 06/05/22 Rx intra-articular syringe (Synvisc) #6 mL Allergies Allergy/AdvReac Type Severity Reaction Status Date / Time amlodipine Allergy Mild Verified 05/27/21 15:05 epinephrine Allergy Mild Verified 06/05/22 13:23 hydrochlorothiazide Allergy Mild Verified 05/27/21 15:05 ciprofloxacin [From CIPRO] Allergy Unknown Verified 05/27/21 15:05 Sulfa (Sulfonamide Allergy Unknown Verified 05/27/21 15:05 Antibiotics) [SULFA (SULFONAMIDE ANTIBIOTICS)] epinipherine AdvReac Severe Palpitation Uncoded 03/06/22 11:00 s Review of Systems Review of Systems Narrative: 14 systems reviewed and negative aside from what is noted in HPI Exam Vital Signs (past 8 hours): - 07/13/22 12:23 07/13/22 12:19 07/13/22 12:30 Temperature 97.7 F Pulse Rate 54 L 55 L 69 Respiratory Rate 16 22 Blood Pressure 168/74 H Pulse Oximetry 99 100 99 Oxygen Delivery Method Room Air 07/13/22 12:35 07/13/22 12:35 07/13/22 13:00 Temperature Pulse Rate 50 L 52 L Respiratory Rate 8 L Blood Pressure 165/71 H Pulse Oximetry 99 99 Oxygen Delivery Method 07/13/22 13:01 07/13/22 13:01 07/13/22 13:30 Temperature Pulse Rate 54 L 60 Respiratory Rate 8 L Blood Pressure 154/70 H Pulse Oximetry 98 99 Oxygen Delivery Method 07/13/22 13:31 07/13/22 13:31 07/13/22 14:00 Temperature Pulse Rate 59 L Respiratory Rate Blood Pressure 156/67 H 149/68 H Pulse Oximetry 98 Oxygen Delivery Method 07/13/22 14:00 07/13/22 14:30 07/13/22 14:30 Temperature Pulse Rate 56 L 56 L Respiratory Rate Blood Pressure 139/65 Pulse Oximetry 97 97 Oxygen Delivery Method 07/13/22 15:00 07/13/22 15:00 07/13/22 15:30 Temperature Pulse Rate 52 L Respiratory Rate 10 L Blood Pressure 156/69 H 154/69 H Pulse Oximetry 98 Oxygen Delivery Method 07/13/22 15:30 Temperature Pulse Rate 52 L Respiratory Rate 11 L Blood Pressure Pulse Oximetry 96 Oxygen Delivery Method Oxygen Delivery Method Room Air Narrative Exam Narrative: GEN: fatigued appearing, pale HEENT: dry mucous membranes, PERRL NECK: trachea midline, no JVD PULM: clear bilaterally, no wheezes, rhonchi rales CV: regular rate and rhythm, no murmurs ABD: soft, nontender, nondistended, no organomegaly, normal bowel sounds EXT: warm and well perfused NEURO: awake, alert, oriented, no focal deficits Objective Labs 07/13/22 15:43 07/13/22 12:30 Labs: Laboratory Results - last 24 hr 07/13/22 07/13/22 07/13/22 12:30 12:30 12:30 WBC 4.2 L RBC 2.50 L Hgb 8.0 L Hct 23.5 L MCV 94.0 MCH 32.2 MCHC 34.2 RDW 14.0 Plt Count 206 Neut % (Auto) 68.8 Lymph % (Auto) 20.[address] [place] % (Auto) 8.0 Eos % (Auto) 1.5 L Baso % (Auto) 0.8 Neut # (Auto) 2900 Lymph # (Auto) [address] [place] # (Auto) 300 Eos # (Auto) 100 Baso # (Auto) 0 PT INR Sodium 129 L Potassium 4.2 Chloride 98 Carbon Dioxide 24 BUN 24 H Creatinine 0.66 Estimated GFR > 60 BUN/Creatinine Ratio 36.4 H Glucose 126 H Calcium 8.6 Total Bilirubin 0.6 AST 33 ALT 24 Alkaline Phosphatase 27 L Total Creatine Kinase 53 CK-MB (CK-2) TNP CK-MB (CK-2) Rel Index TNP Troponin I < 0.012 NT-Pro-B Natriuret Pep 612 H Total Protein 6.6 Albumin 3.9 Globulin 2.7 Albumin/Globulin Ratio 1.4 Lipase 108 Procalcitonin 0.05 Blood Type Antibody Screen Antibody Identification Crossmatch 07/13/22 07/13/22 07/13/22 12:30 14:39 15:43 WBC RBC Hgb 7.3 L Hct 21.3 L MCV MCH MCHC RDW Plt Count Neut % (Auto) Lymph % (Auto) [place] % (Auto) Eos % (Auto) Baso % (Auto) Neut # (Auto) Lymph # (Auto) [place] # (Auto) Eos # (Auto) Baso # (Auto) PT 12.4 INR 1.1 Sodium Potassium Chloride Carbon Dioxide BUN Creatinine Estimated GFR BUN/Creatinine Ratio Glucose Calcium Total Bilirubin AST ALT Alkaline Phosphatase Total Creatine Kinase CK-MB (CK-2) CK-MB (CK-2) Rel Index Troponin I NT-Pro-B Natriuret Pep Total Protein Albumin Globulin Albumin/Globulin Ratio Lipase Procalcitonin Blood Type A Negative Antibody Screen Positive Antibody Identification Anti-D Crossmatch See Detail Assessment & Plan Assessment & Plan narrative: 1. Anemia, acute blood loss -noted to have anemia initially in the 8s, repeated down to 7.3 -ordered for plan for transfusion -plan for possible EGD, colonoscopy for further evaluation -check iron studies, and reticulocyte count -PPI BID -PT consult for weakness 2. Hyponatremia -initial sodium of 129 -suspect secondary to hypovolemia -recheck sodium after fluids and transfusion 3. Hypothyroidism -continue home thyroid medications 4. Hypertension -hold anti-hypertensives CODE: DNR/DNI per POLST Proxy: Judie Baldwin, daughter I have discussed the care with the patient. I have discussed the plan of care with the ED physician and bedside nurse. I have personally reviewed the chest xray and labs. Time Spent With Patient Critical Care time: I spent a total of [] minutes of critical care time on this patient's care today; this time is exclusive of procedural time. Quality MIPS - Meds 'Current medications' to include all prescriptions, [id number] products, herbals, cannabis/cannabidiol products, and vitamin/mineral/dietary (nutritional) supplements. I have utilized all available resources to obtain, update, or review the patient?s current medications. [If Yes, STOP here]: Yes
[2022-07-13 18:07] LABS: Reticulocyte Count, Percent 3.1 % (1.1-2.6)
[2022-07-13 18:13] LABS: Iron 96 ug/dL (37-170)
[2022-07-13 18:18] LABS: COVID19 -Nasal RAPID Negative (Negative)
[2022-07-13 18:24] LABS: Percent Iron Saturation 36 % (15-50); Total Iron Binding Capacity 266 ug/dL (265-497); Transferrin 188 mg/dL (206-381)
[2022-07-13 18:26] LABS: HEMOLYSIS 90 (0-50)
--- NOTE | 2022-07-13 19:03 | PC.NURSE ---
Pt arrived on stretcher from ED at 1850, no c/o pain, able to make needs known. Blood infusing to R FA at 150mL/hr. Hypertensive but otherwise VSS. Purewick connected, pt oriented to call room and call light. Non slip socks applied to feet. Bed alarm on.
[2022-07-13] MEDS: PANTOPRAZOLE 40 MG VIAL IV (19:59)
[2022-07-13 22:13] LABS: Hematocrit 26.9 % (36-46); Hemoglobin 9.1 g/dL (12.0-16.0)
[2022-07-14] VITALS (11 sets, daily range): BP systolic 133–191; BP diastolic 42–80; PULSE 57–64; RESP 16–18; TEMP 36.3–37; O2SAT 94–97
[2022-07-14 06:36] LABS: Add Manual Diff / Slide Review NO; Basophils Absolute Auto 0 /uL (0-100); Basophils Percent Auto 0.9 % (0-2); Eosinophils Absolute Auto 100 /uL (0-450); Eosinophils Percent Auto 2.1 % (2-4); Hematocrit 22.6 % (36-46); Hemoglobin 7.7 g/dL (12.0-16.0); Lymphocytes Absolute Auto 1200 /uL (1100-4500); Lymphocytes Percent Auto 32.3 % (25-40); Mean Corpuscular HGB Conc 34.1 % (30-36); Mean Corpuscular Hemoglobin 31.8 PG (26-34); Mean Corpuscular Volume 93.4 fL (80-100); Monocytes Absolute Auto 400 /uL (0-900); Monocytes Percent Auto 11.3 % (3-14); Neutrophils Absolute Auto 2000 /uL (1500-7000); Neutrophils Percent Auto 53.4 % (50-75); Platelet Count 181 X10^3/uL (150-400); Red Blood Cell Count 2.42 X10^6/uL (4.0-5.2); Red Cell Distribution Width 14.2 % (11.6-14.8); White Blood Cell Count 3.8 X10^3/uL (4.5-11.0)
[2022-07-14 06:46] LABS: BUN Creatinine Ratio 26.8 (6-22); Blood Urea Nitrogen 19 mg/dL (7-17); Calcium 8.4 mg/dL (8.4-10.2); Carbon Dioxide 26 mmol/L (22-32); Chloride 100 mmol/L (98-107); Estimated Glomerular Filt Rate > 60 mL/min (>60); Glucose 100 mg/dL (80-110); HEMOLYSIS < 15 (0-50); Potassium 3.9 mmol/L (3.4-5.1); Sodium 131 mmol/L (137-145)
--- NOTE | 2022-07-14 09:51 | DI.CT.S_ITS ---
PROCEDURE: CT ABDOMEN PELVIS W CON INDICATIONS: unexpected weight loss, anemia TECHNIQUE: After the administration of intravenous contrast, axial sections acquired from the lung bases to the pubic symphysis. Coronal and sagittal reformats were performed. For radiation dose reduction, the following was used: automated exposure control, adjustment of mA and/or kV according to patient size. COMPARISON: None. FINDINGS: Image quality: Good Lower chest: Basal scarring/atelectasis. Small Bochdalek's hernias. Possible small hiatal hernia and possible mild distal esophageal wall thickening, not well evaluated on CT. Solid organs: Suspected focal fat adjacent to the falciform ligament. Liver is otherwise unremarkable. Subcentimeter lesions are too small to characterize. Gallbladder is unremarkable. Prominent biliary tree, possibly senescent, correlate with LFTs. No pathologic pancreatic ductal dilation. No splenomegaly. No adrenal nodules. Bosniak 1 and 2 renal lesions are present, for which no dedicated followup is necessary per 2019 proposed guidelines. No hydronephrosis. Vessels and lymph nodes: No pathologic adenopathy by size criteria. There are atherosclerotic calcifications of the abdominal aorta and its branches. The main portal vein is patent. Bowel and peritoneum: No evidence of small bowel obstruction. No pathologic ascites. Colonic diverticula cysts and sigmoid wall thickening, commonly seen in the setting of chronic diverticular disease. Normal appendix. Numerous loops of small bowel appear tethered together in the left pelvis, without active obstruction, possibly related to scarring/adhesions. Body wall: Tiny fat containing umbilical hernia. Pelvis: Bladder is unremarkable. There are prominent heidi adnexal vessels, sometimes seen in the setting of pelvic congestion. Reproductive organs are otherwise not well evaluated on CT. Bones: Scattered degenerative changes. No acute osseous abnormality. There are L5 pars defects. There are lucent lesions within the spine, indeterminate, possibly representing hemangiomas, which could be further confirmed with MRI if clinically necessary in the setting of malignancy suspicion. IMPRESSION: Colonic diverticula and possible chronic diverticular disease, particularly in the sigmoid colon. No definite acute abdominal pelvic abnormality. In the setting of anemia and weight loss, please consider GI consultation and possible colonoscopy. Many other incidental findings above. Dictated by: Andrés Reveles M.D. on 07/14/2022 at 10:47 Approved by: Andrés Reveles M.D. on 07/14/2022 at 10:54
[2022-07-14] MEDS: SODIUM CHLORIDE 0.9% FLUSH 10 ML IV ×2 (09:59→20:28)
[2022-07-14] MEDS: PANTOPRAZOLE 40 MG VIAL IV ×2 (09:59→20:27)
[2022-07-14 11:44] LABS: Hematocrit 23.8 % (36-46); Hemoglobin 8.1 g/dL (12.0-16.0)
--- NOTE | 2022-07-14 12:32 | PM.CALLCOV.1 ---
Call Coverage Note Note Date of Patient Contact: 07/14/22 Narrative of Care Provided: receiving transfusion for symptomatic anemia. CT scan shows diverticulosis but no acute disease in abdomen to explain GI bleed. Bowel prep today with re evaluation in am by Dr. Sandy for endoscopy.
--- NOTE | 2022-07-14 12:50 | PT.IIE ---
Surgical History (Last Reviewed 07/13/22 @ 17:36 by Jean Felix MD) Anesthesia History of bunionectomy (~1969) History of cataract removal with insertion of prosthetic lens (~2018) History of oral surgery History of oral surgery (~1945) History of tonsillectomy (~1942) [place] teeth removed (~1950) Medical History (Last Reviewed 07/13/22 @ 17:36 by Jean Felix MD) Cervicalgia Chicken pox (~1940) Fractures (~1944) Heavy menstrual period History of candidiasis Hypothyroidism (~2010) Measles (~194) Mumps (~194) Tension headache (~1940) Unilateral primary osteoarthritis, right knee Physical Therapy Inpatient Evaluation/Re-Eval M1 PT/OT-IP Prior Functional Status Start: 07/14/22 08:57 Freq: NEEDED Status: Active Protocol: Document 07/14/22 08:59 AMB (Rec: 07/14/22 09:02 AMB [id number]) Medical Review Prior Functional Status Medical History Reviewed Yes Diet/Fluid Consistency NPO Communication WFL Mobility and Gait Ambulates without AD in the home, uses trekking poles when hiking with friends Social History Household Members none Living Arrangements House Number of Floors (Floors) Two Floors Number of Stairs To Enter/Railing? 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 Additional Social History Comment has a couple of friends who can drive her to appts but lives alone M2 PT-IP Current Condition Start: 07/14/22 08:57 Freq: NEEDED Status: Active Protocol: Document 07/14/22 08:59 AMB (Rec: 07/14/22 09:02 AMB [id number]) Physical Therapy Current Condition Current Condition Evaluation Date 07/14/22 Treatment Diagnosis anemia/weakness Onset Date 07/13/22 M3 PT-IP Subjective Start: 07/14/22 08:57 Freq: NEEDED Status: Active Protocol: Document 07/14/22 08:59 AMB (Rec: 07/14/22 09:02 AMB [id number]) Subjective Physical Therapy Visit Type Type Initial Evaluation Visit Start Time 08:25 Visit Stop Time 09:00 Total Visit Minutes 35 Physical Therapy Visit Comments Patient Comments Pt willing and able to get up M4 PT-IP Mobility and Gait Start: 07/14/22 08:57 Freq: NEEDED Status: Active Protocol: Document 07/14/22 08:15 AMB (Rec: 07/14/22 11:17 AMB [id number]) PT-Bed Mobility Assessment Rolling Level of Assist Independent Supine to Sit Supine to Sit Standby Assistance Sit to Supine Sit to Supine Standby Assistance Scooting Scooting to Edge of Bed Independent Scooting Up and Down in Bed Standby Assistance PT-Transfer Assessment Sit to and From Stand Sit to and from Stand Standby Assistance Equipment Transfer Assistive Device Gait Belt Transfers Transfer Destination Bed,Chair,Toilet Transfer Technique Stand Step Pivot Transfer Ability Level of Assist Standby Assistance Comments Mobility Comments Alia performs bed mobility and transfers independently/ SBA. She is not used to using a FWW so does need some cues to remember that. Check BP in supine: 161/66. Standing 165 /73, no dizziness/ lightheadedness reported. Gait Assessment Gait Gait Assistance Required: Contact Guard Assist Distance (Feet) 200 Assistive Devices Assistive Device Gait Belt,Front Wheeled Walker Comments Gait Comments Pt ambulated with FWW around nurses station and around room with CGA, transfered to toilet and bed with SBA. M5 PT-IP Objective Assessments Start: 07/14/22 08:57 Freq: NEEDED Status: Active Protocol: Document 07/14/22 08:15 AMB (Rec: 07/14/22 12:35 AMB [id number]) Orientation Orientation/Cognition Level of Alertness Alert Gross Range of Motion Lower Extremity ROM Assessment Within Functional Limits Strength Lower Extremity Strength Assessment Within Functional Limits M7 PT-IP Assessment and Plan Start: 07/14/22 08:57 Freq: NEEDED Status: Active Protocol: Document 07/14/22 08:59 AMB (Rec: 07/14/22 09:02 AMB [id number]) PT Summary Assessment and Plan Potential Rehabilitation Potential Good Summary Impairments Strength,Balance,Gait,Activity Tolerance Assessment Summary Alia was weak for about a week and finally called EMS. She lives on [address] in her own home and was previously independent, going on hikes, driving etc. She has received one blood transfusion while here and Hand H did improve with that. Awaiting possible endoscopy to find source of blood in stool. Overall her mobility was good, but she will need stair training before d/c home when medically stable. Could consider home health due to pt not being and her previous level of function. She does have a 4WW at home already. Goals Bed Mobility Goal Independent Transfer Goal Independent Gait Goal Independent Gait Distance 300' Other Goals 1 flight of stairs with 1 railing and SBA Days to Meet Goals 5 Frequency of Treatment Frequency Of Treatment Once a Day Treatment Plan Physical Therapy Treatment Plan Bed Mobility Training,Transfer Training,Gait Training, Therapeutic Exercise,Balance Retraining Other Recommendations and Next Treatment Stair training, balance/ Focus strength exercise Recommendations To Nursing Amount of Assist Needed Standby Assistance,1 Person Assist Discharge Recommendations PT Discharge Recommendations Home,Home Health Transportation Needs at Discharge Private Vehicle
[2022-07-14] MEDS: THYROID DESICCATED 1 EACH PO ×2 (13:05→13:06)
[2022-07-14] MEDS: PEG3350/SOD SULF,BICARB,CL/KCL 4,000 ML SOLUTION 4000 ML PO (15:21)
--- NOTE | 2022-07-14 15:36 | CM.DANOTE ---
DCP Assessment: Patient was admitted for Poss GI bleed and blood loss anemia. CM met with the patient at the bedside. She was A&O x4 during CM visit. patient lives on [address] in a two story home. She currently lives alone but does have a neighbor that is going to help her out with transport home and assisting her at [place]. patient is Independent with all ADLs and Drives at her baseline. PCP: [facility], Insurance: Medicare and selfpay Plan: DC home to [facility] when medically ready for DC. Patients friend will provide transport home but will need priority boarding so she can get the patient back to [facility]. Susanne Amor RNmanager aviation Discharge Planning/Care Management Advanced directive, confirm from [facility] Start: 07/13/22 19:49 Freq: Q24H Status: Active Protocol: Document 07/13/22 20:50 MP (Rec: 07/13/22 22:19 MP [id number]) Advance Directive, confirm on record Time 20:50 Person contacted pt. Copy received No CM Discharge Assessment Start: 07/14/22 15:33 Freq: Status: Active Protocol: Document 07/14/22 15:33 HS (Rec: 07/14/22 15:36 HS [id number]) Discharge Planning Assessment Assigned Utilization Management Um Nurse Susanne Amor RNmanager aviation DPOA/Assigned Designee Name Judie Miller- daughter Advance Directives? Yes: DPOA/Health Care Directive Advance Directives on File Yes History Provided By Patient Has Patient been admitted in last 30 No days? Prior Living Arrangements House Comment lives in house with 14 [address] on [address] Household Members none Type of transporation used prior to Drives own vehicle admit Willing to Return to Facility? No Independent with ADL's Yes Is patient alert and oriented? Yes Caregiver for Another No DME Already Rented / Owned Cane Comment doesn't use DME at her baseline Barriers to Discharge No Discharge Plan Home Transportation Arrangement Patients friend will transport her home to [facility] at [place]- will need to know early of DC so her freind can get a ferry back to be able to pick her up. Referrals Initiated None needed Additional Comment Patient will need priority boarding to [facility] at [place] If patient plan is home with home health No : Has signed face to face form been completed? If patient plan is SNF: Has PASSR been No completed? Whiteboard Updated in Patient Room with Yes name and ext. # of Utilization Management Um Nurse Review Status In Process Next Review Type Continued Stay Review
--- NOTE | 2022-07-14 15:50 | PM.PN.1 ---
Subjective Subjective Interval history: 86-year-old female with hypertension, hypothyroidism, and known iron deficiency anemia history who was admitted last evening with dizziness and presyncopal symptoms. Patient was noting generalized weakness and fatigue for approximately 1 week. She would not had any nausea, vomiting, or abdominal pain. No hematemesis. No melena. On admission, she was noted to have initial hemoglobin of 8.0. Upon follow-up it was 7.3. She received 1 unit of packed red blood cells admission was recommended. Patient reports she is feeling better today. She denies any dizziness. She is not had a bowel movement overnight. She is been up to the bathroom multiple times without any difficulty. She lives on [facility]. She is been there for the last 6-7 years. Exam Vital Signs (past 8 hours): - 07/14/22 08:00 07/14/22 08:00 07/14/22 14:30 Temperature 98.3 F Pulse Rate 57 L Respiratory Rate 16 Blood Pressure 143/53 H Pulse Oximetry 96 95 Oxygen Delivery Method Room Air Room Air Oxygen Flow Rate 0 Oxygen Delivery Method Room Air Oxygen Flow Rate 0 Narrative Exam Narrative: GEN: Elderly female, Alert and oriented x 3, NAD HEENT:NC, Face symmetric CHEST: Respiratory excursions symmetric, CTAB CV: RRR, no M/R/G ABD: Soft, NT/ND, BT present in all 4 quadrants, no organomegaly or masses EXTR: warm, well perfused, no C/C/E SKIN: warm and dry, no rash NEURO: Alert and oriented x 3, nonfocal Objective Labs 07/14/22 11:15 07/14/22 06:24 Labs: Laboratory Results - last 24 hr 07/13/22 07/13/22 07/13/22 12:30 12:30 12:30 WBC RBC Hgb Hct MCV MCH MCHC RDW Plt Count Neut % (Auto) Lymph % (Auto) [place] % (Auto) Eos % (Auto) Baso % (Auto) Neut # (Auto) Lymph # (Auto) [place] # (Auto) Eos # (Auto) Baso # (Auto) Percent Retic 3.1 H PT 12.4 INR 1.1 Sodium Potassium Chloride Carbon Dioxide BUN Creatinine Estimated GFR BUN/Creatinine Ratio Glucose Calcium Iron 96 TIBC 266 % Saturation 36 Transferrin 188 L SARS-CoV-2 (PCR) Blood Type Antibody Screen Antibody Identification Crossmatch 07/13/22 07/13/22 07/13/22 14:39 15:43 17:52 WBC RBC Hgb 7.3 L Hct 21.3 L MCV MCH MCHC RDW Plt Count Neut % (Auto) Lymph % (Auto) [place] % (Auto) Eos % (Auto) Baso % (Auto) Neut # (Auto) Lymph # (Auto) [place] # (Auto) Eos # (Auto) Baso # (Auto) Percent Retic PT INR Sodium Potassium Chloride Carbon Dioxide BUN Creatinine Estimated GFR BUN/Creatinine Ratio Glucose Calcium Iron TIBC % Saturation Transferrin SARS-CoV-2 (PCR) Negative Blood Type A Negative Antibody Screen Positive Antibody Identification Anti-D Crossmatch See Detail 07/13/22 07/14/22 07/14/22 21:59 06:24 06:24 WBC 3.8 L RBC 2.42 L Hgb 9.1 L 7.7 L Hct 26.9 L 22.6 L MCV 93.4 MCH 31.8 MCHC 34.1 RDW 14.2 Plt Count 181 Neut % (Auto) 53.4 Lymph % (Auto) 32.3 [place] % (Auto) 11.3 Eos % (Auto) 2.1 Baso % (Auto) 0.9 Neut # (Auto) 2000 Lymph # (Auto) 1200 [place] # (Auto) 400 Eos # (Auto) 100 Baso # (Auto) 0 Percent Retic PT INR Sodium 131 L Potassium 3.9 Chloride 100 Carbon Dioxide 26 BUN 19 H Creatinine 0.71 Estimated GFR > 60 BUN/Creatinine Ratio 26.8 H Glucose 100 Calcium 8.4 Iron TIBC % Saturation Transferrin SARS-CoV-2 (PCR) Blood Type Antibody Screen Antibody Identification Crossmatch 07/14/22 11:15 WBC RBC Hgb 8.1 L Hct 23.8 L MCV MCH MCHC RDW Plt Count Neut % (Auto) Lymph % (Auto) [place] % (Auto) Eos % (Auto) Baso % (Auto) Neut # (Auto) Lymph # (Auto) [place] # (Auto) Eos # (Auto) Baso # (Auto) Percent Retic PT INR Sodium Potassium Chloride Carbon Dioxide BUN Creatinine Estimated GFR BUN/Creatinine Ratio Glucose Calcium Iron TIBC % Saturation Transferrin SARS-CoV-2 (PCR) Blood Type Antibody Screen Antibody Identification Crossmatch [facility] Medical History Cervicalgia Chicken pox (~1940) Fractures (~1944) Heavy menstrual period History of candidiasis Hypothyroidism (~2009) Measles (~194) Mumps (~194) Tension headache (~194) Unilateral primary osteoarthritis, right knee Surgical History Anesthesia History of bunionectomy (~1968) History of cataract removal with insertion of prosthetic lens (~2017) History of oral surgery History of oral surgery (~194) History of tonsillectomy (~194) [place] teeth removed (~1950) Family History Father History of heart disease Hypertension Mother Breast cancer Mental health problem Family/Other Multiple sclerosis Family/Other Mental health problem Social History household members: none Smoking Status: Never smoker alcohol intake: never Assessment & Plan Assessment & Plan narrative: 1. Anemia, acute blood loss, symptomatic Patient was admitted with a hemoglobin down to 7.3 yesterday associated with presyncope/dizziness. She received 1 unit red blood cells with improvement. Post transfusion her hemoglobin was up to 9.1 but has equilibrated down to 7.7 today. Will obtain a follow-up H/H later this morning. 2. Heme-positive stool Was reported she had heme-positive brown stool in the emergency department. Await consult per General surgery for further recommendations for colonoscopy. 3. Hyponatremia Initial sodium was 129. It is improved at 131 today. Will follow. 4. Azotemia Mild. On admission her BUN was 24. It is down to 19 today. 5. Leukopenia On admission her white blood cell count was 4.2. It is down to 3.8 today. At baseline it appears to be in the 4.8-5.5 range. Monitor. 6. Hypothyroidism Continue thyroid replacement 7. Hypertension Blood pressures have been normotensive to hypertensive today. Antihypertensives have been held given possibility of underlying occult GI bleeding. Will likely restart them tomorrow as long as blood pressures and hemoglobin remained stable Code status DNR DNI Healthcare proxy Judie Baldwin, pt's dtr Prophylaxis Chemical prophylaxis contraindicated in the setting of possible occult GI bleeding Disposition Pending Time Spent With Patient Critical Care time: I spent a total of [] minutes of critical care time on this patient's care today; this time is exclusive of procedural time. Quality VTE Deep Vein Thrombosis/Pulmonary Embolism Present on Admission: No
[2022-07-15] VITALS (16 sets, daily range): BP systolic 147–192; BP diastolic 55–89; PULSE 63–77; RESP 16–20; TEMP 36.1–37.5; O2SAT 92–98; BMI 23.6
--- NOTE | 2022-07-15 | PATH_ITS ---
[facility] Accession Number: [id number] No. of containers..01 Tissue . 01 Material submitted: . gastrointestinal site - ANTRUM BIOPSY . 01 Clinical history: . NEAR SYNCOPE, 1 WEEK OF GENERALIZED WEAKNESS . 01 Diagnosis: Stomach, Antrum, Biopsy: Antral mucosa with mild chronic gastritis. Negative for Helicobacter by immunohistochemistry. Negative for intestinal metaplasia. Negative for dysplasia and malignancy. [facility] 07/20/2022 1750 Local . 01 Electronically signed: . Ignacia Anaya MD, Pathologist NPI- [id number] . 01 Gross description: . ANTRUM BIOPSY: Received in formalin are 2 fragment(s) of preciado, soft tissue measuring 0.4 x 0.2 x 0.2 cm to 0.3 x 0.1 x 0.1 cm submitted entirely in 1 cassette(s) /CPE 07/18/2022 0847 Local . 01 Microscopic: . An immunohistochemical stain was performed to evaluate for Helicobacter organisms and is negative. The control stain showed appropriate reactivity. . * This test was developed and its performance characteristics determined by [facility]. It has not been cleared or approved by the U.S. Food and Drug Administration. The FDA has determined that such clearance or approval is not necessary. This test is used for clinical purposes. It should not be regarded as investigational or for research. . 01 Pathologist provided ICD-10: R10.9 . 01 CPT . 685609, [id number] Specimen Comment: A courtesy copy of this report has been sent to [phone] Performed at: 01 [facility] [address] [place] [address] [address], [place], [place] [id number] MD Rob Mesa MD Phone: [phone]
[2022-07-15] MEDS: LORazepam 0.5 MG TABLET PO (05:20)
--- NOTE | 2022-07-15 06:08 | PC.NURSE ---
LAZARUS Sebastian notified with pt. B/P 192/73, pt. reports little anxious regarding procedure today. Ordered to give Lorazepam 0.5 mg. PO with sips of water & admin. Rechecked B/P after 30 mins. of Lorazepam. B/P rechecked 168/70 & HR. 68 LAZARUS Sebastian notified. Will cont. POC & monitor.
[2022-07-15 06:41] LABS: Add Manual Diff / Slide Review NO; Basophils Absolute Auto 0 /uL (0-100); Basophils Percent Auto 0.9 % (0-2); Eosinophils Absolute Auto 100 /uL (0-450); Hematocrit 24.4 % (36-46); Hemoglobin 8.4 g/dL (12.0-16.0); Lymphocytes Absolute Auto 1000 /uL (1100-4500); Mean Corpuscular HGB Conc 34.4 % (30-36); Mean Corpuscular Hemoglobin 32.1 PG (26-34); Mean Corpuscular Volume 93.3 fL (80-100); Monocytes Absolute Auto 500 /uL (0-900); Monocytes Percent Auto 11.6 % (3-14); Neutrophils Absolute Auto 2400 /uL (1500-7000); Neutrophils Percent Auto 59.5 % (50-75); Platelet Count 217 X10^3/uL (150-400); Red Blood Cell Count 2.61 X10^6/uL (4.0-5.2)
[2022-07-15 07:30] LABS: BUN Creatinine Ratio 18.8 (6-22); Blood Urea Nitrogen 12 mg/dL (7-17); Calcium 8.4 mg/dL (8.4-10.2); Carbon Dioxide 27 mmol/L (22-32); Chloride 96 mmol/L (98-107); Estimated Glomerular Filt Rate > 60 mL/min (>60); Glucose 92 mg/dL (80-110); HEMOLYSIS < 15 (0-50); Potassium 3.7 mmol/L (3.4-5.1); Sodium 133 mmol/L (137-145)
--- NOTE | 2022-07-15 09:28 | PM.CN ---
History of Present Illness Consult details Date Patient Seen: 07/15/22 Time Patient Seen: 09:29 Chief complaint: Near syncope,1 week of generalized weakness Narrative: Alia is an 86-year-old woman who presented to the emergency department 2 days ago complaining of several days of weakness and dizziness. She was found to be anemic and her stools were guaiac positive. She does not recall seeing any black or bloody stool. A CT scan of the abdomen was normal. She has never had an EGD or colonoscopy before. No known family history of colon cancer. She started a bowel prep yesterday. Meds Home Medications and Allergies Home Medications Medication Instructions Recorded Confirmed Type atenolol 100 mg tablet 100 mg PO DAILY 09/06/21 07/13/22 History benzonatate 100 mg capsule 100 mg PO TID PRN Cough 09/06/21 07/13/22 History thyroid (pork) 15 mg tablet (RETAIL CLIENT SOLUTIONS ANALYST 15 mg PO DAILY 09/06/21 07/13/22 History Thyroid) thyroid (pork) 90 mg tablet (RETAIL CLIENT SOLUTIONS ANALYST 90 mg PO DAILY 09/06/21 07/13/22 History Thyroid) hydralazine 50 mg tablet 50 mg PO Q6H 11/17/21 07/13/22 History losartan 100 mg tablet 50 mg PO BID 11/17/21 07/13/22 History lorazepam 0.5 mg tablet 0.5 mg PO .hs prn #30 tabs 01/19/22 07/13/22 Rx hylan g-f 20 16 mg/2 mL 16 mg (2 mL) intra-articular ONCE 05/31/22 07/13/22 Rx intra-articular syringe (Synvisc) #6 mL Allergies Allergy/AdvReac Type Severity Reaction Status Date / Time amlodipine Allergy Mild Verified 05/27/21 15:05 epinephrine Allergy Mild Verified 06/05/22 13:23 hydrochlorothiazide Allergy Mild Verified 05/27/21 15:05 ciprofloxacin [From CIPRO] Allergy Unknown Verified 05/27/21 15:05 Sulfa (Sulfonamide Allergy Unknown Verified 05/27/21 15:05 Antibiotics) [SULFA (SULFONAMIDE ANTIBIOTICS)] epinipherine AdvReac Severe Palpitation Uncoded 03/06/22 11:00 s Exam Vital Signs (past 8 hours): - 07/15/22 04:25 07/15/22 04:25 07/15/22 06:14 Temperature 98.8 F Pulse Rate 72 68 Respiratory Rate 18 Blood Pressure 192/73 H 168/70 H Pulse Oximetry 95 95 Oxygen Delivery Method Room Air Oxygen Flow Rate 0 07/15/22 08:00 Temperature 98.2 F Pulse Rate 71 Respiratory Rate 16 Blood Pressure 161/67 H Pulse Oximetry 95 Oxygen Delivery Method Oxygen Flow Rate Oxygen Delivery Method Room Air Oxygen Flow Rate 0 Const General: No acute distress Orientation: alert and awake Resp Effort & Inspection: normal respiratory effort Objective Labs 07/15/22 06:25 07/15/22 06:25 Labs: Laboratory Results - last 24 hr 07/14/22 07/15/22 07/15/22 11:15 06:25 06:25 WBC 4.0 L RBC 2.61 L Hgb 8.1 L 8.4 L Hct 23.8 L 24.4 L MCV 93.3 MCH 32.1 MCHC 34.4 RDW 14.0 Plt Count 217 Neut % (Auto) 59.5 Lymph % (Auto) 25.0 [place] % (Auto) 11.6 Eos % (Auto) 3.0 Baso % (Auto) 0.9 Neut # (Auto) 2400 Lymph # (Auto) 1000 L [place] # (Auto) 500 Eos # (Auto) 100 Baso # (Auto) 0 Sodium 133 L Potassium 3.7 Chloride 96 L Carbon Dioxide 27 BUN 12 Creatinine 0.64 Estimated GFR > 60 BUN/Creatinine Ratio 18.8 Glucose 92 Calcium 8.4 PFSH Medical History Cervicalgia Chicken pox (~1940) Fractures (~1944) Heavy menstrual period History of candidiasis Hypothyroidism (~2010) Measles (~194) Mumps (~1942) Tension headache (~1940) Unilateral primary osteoarthritis, right knee Surgical History Anesthesia History of bunionectomy (~1968) History of cataract removal with insertion of prosthetic lens (~2018) History of oral surgery History of oral surgery (~1945) History of tonsillectomy (~194) [place] teeth removed (~1950) Family History Father History of heart disease Hypertension Mother Breast cancer Mental health problem Family/Other Multiple sclerosis Family/Other Mental health problem Social History household members: none Tobacco & Substance Use Smoking Status: Never smoker alcohol intake: never Assessment & Plan Assessment and plan (1) Anemia: Status: Acute Plan We will plan to proceed with an EGD and colonoscopy to rule out malignant causes of anemia from GI bleeding. Reviewed the risks and benefits and she would like to proceed. Time Spent With Patient Critical Care time: I spent a total of [] minutes of critical care time on this patient's care today; this time is exclusive of procedural time.
[2022-07-15] MEDS: SODIUM CHLORIDE 0.9% FLUSH 10 ML IV ×2 (10:14→20:25)
[2022-07-15] MEDS: PANTOPRAZOLE 40 MG VIAL IV (10:17)
[2022-07-15] MEDS: LACTATED RINGERS 1,000 ML 42 ML IV (11:47)
--- NOTE | 2022-07-15 12:20 | PC.NURSE ---
alert and oriented, a bit anxious about pending EGD and Colonoscopy. Went down for procedure around 11:30 hand off report to Willis.
--- NOTE | 2022-07-15 12:51 | P.OP.EGD&C_ITS ---
Operative Date/Time/Diagnoses Date of procedure: 07/15/22 Time of procedure: 12:51 Pre-op diagnosis: Anemia Procedure & Clinicians Study performed: EGD and colonoscopy Same procedure as scheduled: Yes Surgeon: Brodie Sandy Procedure Notes Procedure in detail: Surgeon: Brodie Sandy MD Anesthesia: Meche Clemens PRODUCTION ASSEMBLY SUPERVISOR Procedure in detail: A timeout was performed. A bite blocked was placed and monitors were attached to the patient. The patient was positioned in a left lateral decubitus position. Sedation was administered by the PRODUCTION ASSEMBLY SUPERVISOR. Once the patient was sedated the endoscope was inserted through the bite block and passed through the esophagus and stomach and into the duodenum. The duodenum was normal. We then withdrew the scope into the stomach. There was some antritis and a few small shallow ulcers in the antrum. Biopsies were taken from the antrum. The endoscope was retroflexed and a small hiatal hernia was seen. The endoscope was straightned and withdrawn into the esophagus. No abnormalities were seen in the esophagus. Findings: Antritis and small antral ulcers Next we repositioned the patient for a colonoscopy. A digital rectal exam was performed and was normal except for mixed hemorrhoids. The colonoscope was inserted and advanced to the cecum. The appendiceal orifice was identified and photographed. The scope was slowly withdrawn over greater than 6 minutes. There was pandiverticulosis greatest in the sigmoid colon. No polyps or masses were seen. The scope was retroflexed in the rectum and internal hemorrhoids were seen. Findings: Pandiverticulosis and mixed hemorrhoids EBL: 5 mL Scope withdrawal time: 7 minutes Sedation minutes: 37 minutes Impression: The most likely cause of anemia is antral ulcers. Recommend taking a medication for acid suppression such as omeprazole or pantoprazole. Biopsies will show if there is H pylori present in the stomach. Post-procedure Disposition: PACU
--- NOTE | 2022-07-15 13:02 | SUR.PHASEI ---
Patient awake but drowsy, drinking water with no difficulty swallowing; no nausea; abdomen soft and non-distended. VSS. BP stable at 171/85; NSR 66; asymptomatic.
--- NOTE | 2022-07-15 16:15 | PT-IP ANOTE ---
Pt in bed. States she just returned to bed after procedure. She is moving well and is supposed to DC home tomorrow. Lives on [place] and friend who will be staying with her will be here 1015 to pick her up. Will need to do stairs prior to DC.
--- NOTE | 2022-07-15 16:51 | PM.PN.1 ---
Subjective Subjective Interval history: 86-year-old female with hypertension, hypothyroidism, and known iron deficiency anemia history who was admitted last evening with dizziness and presyncopal symptoms.? Patient was noting generalized weakness and fatigue for approximately 1 week.? She would not had any nausea, vomiting, or abdominal pain.? No hematemesis.? No melena.? On admission, she was noted to have initial hemoglobin of 8.0.? Upon follow-up it was 7.3.? She received 1 unit of packed red blood cells admission was recommended. Patient underwent EGD and colonoscopy today. Etiology is felt to have been small antral ulcers and antritis. Colonoscopy revealed pandiverticulosis and mixed hemorrhoids. Patient is seen postprocedure. She reports she is feeling fairly well though tired from her sedation and bowel prep. She is hopeful to go home tomorrow. She denies any new complaints. Exam Vital Signs (past 8 hours): - 07/15/22 11:00 07/15/22 12:54 07/15/22 12:59 Temperature 98 F 97.5 F L Pulse Rate 69 74 77 Respiratory Rate 16 20 18 Blood Pressure 186/89 H 168/83 H 171/85 H Pulse Oximetry 98 96 96 Oxygen Delivery Method Room Air Room Air Room Air 07/15/22 13:05 07/15/22 13:34 07/15/22 12:00 Temperature 97.0 F L Pulse Rate 69 63 Respiratory Rate 16 16 Blood Pressure 179/83 H 182/85 H Pulse Oximetry 98 95 95 Oxygen Delivery Method Room Air Room Air Oxygen Delivery Method Room Air Oxygen Flow Rate 0 Narrative Exam Narrative: GEN:? Elderly female, Alert and oriented x 3, NAD HEENT:NC, Face symmetric CHEST: Respiratory excursions symmetric, CTAB CV: RRR, no M/R/G ABD: Soft, NT/ND, BT present in all 4 quadrants, no organomegaly or masses EXTR: warm, well perfused, no C/C/E SKIN: warm and dry, no rash, multiple scabbed lesions across her face appearing consistent with actinic keratoses NEURO: Alert and oriented x 3, nonfocal Objective Labs 07/15/22 06:25 07/15/22 06:25 Labs: Laboratory Results - last 24 hr 07/15/22 07/15/22 06:25 06:25 WBC 4.0 L RBC 2.61 L Hgb 8.4 L Hct 24.4 L MCV 93.3 MCH 32.1 MCHC 34.4 RDW 14.0 Plt Count 217 Neut % (Auto) 59.5 Lymph % (Auto) 25.0 [place] % (Auto) 11.6 Eos % (Auto) 3.0 Baso % (Auto) 0.9 Neut # (Auto) 2400 Lymph # (Auto) 1000 L [place] # (Auto) 500 Eos # (Auto) 100 Baso # (Auto) 0 Sodium 133 L Potassium 3.7 Chloride 96 L Carbon Dioxide 27 BUN 12 Creatinine 0.64 Estimated GFR > 60 BUN/Creatinine Ratio 18.8 Glucose 92 Calcium 8.4 [facility] Medical History Cervicalgia Chicken pox (~194) Fractures (~194) Heavy menstrual period History of candidiasis Hypothyroidism (~2009) Measles (~194) Mumps (~194) Tension headache (~194) Unilateral primary osteoarthritis, right knee Surgical History Anesthesia History of bunionectomy (~1968) History of cataract removal with insertion of prosthetic lens (~2017) History of oral surgery History of oral surgery (~1944) History of tonsillectomy (~1941) [place] teeth removed (~1950) Family History Father History of heart disease Hypertension Mother Breast cancer Mental health problem Family/Other Multiple sclerosis Family/Other Mental health problem Social History household members: none Smoking Status: Never smoker alcohol intake: never Assessment & Plan Assessment & Plan narrative: 1. Anemia, acute blood loss, symptomatic Patient was admitted with a hemoglobin down to 7.3 on admission associated with presyncope/dizziness.? She received 1 unit red blood cells with improvement.? Post transfusion her hemoglobin was up to 9.1 but has equilibrated down to 7.7 yesterday.? H&H 8.4/24.4 today. 2. Heme-positive stool Was reported she had heme-positive brown stool in the emergency department.? Etiology felt to be enteritis and small antral ulcers. H pylori testing is pending. Discussed with patient the treatment for H pylori and she is somewhat adverse to it as she follows with a functional medicine provider and feels this would not be indicated. She is receptive to continuing a PPI. 3. Hyponatremia Initial sodium was 129.? Improved at 133 today. 4. Azotemia Mild.? On admission her BUN was 24.? It has normalized and is 12 today. 5. Leukopenia On admission her white blood cell count was 4.2.? Remains mildly low at 4.0. As noted baseline is 4.8-5.5 per history. 6. Hypothyroidism Continue thyroid replacement 7. Hypertension Blood pressures are now significantly elevated. As noted will restart her home antihypertensive therapy. Code status DNR DNI Healthcare proxy Judie Baldwin, pt's dtr Prophylaxis Chemical prophylaxis contraindicated in the setting of possible occult GI bleeding Disposition Likely discharge home tomorrow. Patient will have someone coming from [facility] on the [place] to pick her up. Time Spent With Patient Critical Care time: I spent a total of [] minutes of critical care time on this patient's care today; this time is exclusive of procedural time. Quality VTE Deep Vein Thrombosis/Pulmonary Embolism Present on Admission: No
[2022-07-15] MEDS: HYDRALAZINE 25 MG TABLET 50 MG PO ×2 (18:02→23:07)
[2022-07-15] MEDS: atenoloL 50 MG TABLET 100 MG PO (18:02)
[2022-07-15] MEDS: LOSARTAN 50 MG TABLET PO (20:20)
[2022-07-16] VITALS (9 sets, daily range): BP systolic 123–187; BP diastolic 46–73; PULSE 64–69; RESP 16; TEMP 36.3–36.7; O2SAT 92–96
[2022-07-16] MEDS: atenoloL 50 MG TABLET PO (06:37)
[2022-07-16] MEDS: ACETAMINOPHEN 325 MG TABLET 650 MG PO (06:41)
[2022-07-16] MEDS: LOSARTAN 50 MG TABLET PO (06:41)
[2022-07-16] MEDS: HYDRALAZINE 25 MG TABLET 50 MG PO (06:42)
[2022-07-16] MEDS: THYROID DESICCATED 1 EACH PO ×2 (06:45)
[2022-07-16 06:49] LABS: Add Manual Diff / Slide Review NO; Basophils Absolute Auto 0 /uL (0-100); Basophils Percent Auto 0.9 % (0-2); Eosinophils Absolute Auto 200 /uL (0-450); Eosinophils Percent Auto 3.2 % (2-4); Hematocrit 24.3 % (36-46); Hemoglobin 8.3 g/dL (12.0-16.0); Lymphocytes Absolute Auto 1200 /uL (1100-4500); Mean Corpuscular HGB Conc 34.1 % (30-36); Mean Corpuscular Volume 93.6 fL (80-100); Monocytes Absolute Auto 500 /uL (0-900); Monocytes Percent Auto 10.4 % (3-14); Neutrophils Absolute Auto 2900 /uL (1500-7000); Neutrophils Percent Auto 60.5 % (50-75); Platelet Count 231 X10^3/uL (150-400); Red Blood Cell Count 2.59 X10^6/uL (4.0-5.2); Red Cell Distribution Width 14.2 % (11.6-14.8); White Blood Cell Count 4.8 X10^3/uL (4.5-11.0)
[2022-07-16 06:55] LABS: BUN Creatinine Ratio 17.7 (6-22); Blood Urea Nitrogen 11 mg/dL (7-17); Calcium 8.3 mg/dL (8.4-10.2); Carbon Dioxide 26 mmol/L (22-32); Chloride 95 mmol/L (98-107); Estimated Glomerular Filt Rate > 60 mL/min (>60); Glucose 96 mg/dL (80-110); HEMOLYSIS < 15 (0-50); Potassium 3.3 mmol/L (3.4-5.1); Sodium 129 mmol/L (137-145)
[2022-07-16] MEDS: PANTOPRAZOLE DR 40 MG TABLET PO (06:59)
[2022-07-16] MEDS: POTASSIUM CHLORIDE 20 MEQ TAB PO (08:40)
--- NOTE | 2022-07-16 09:15 | CM.DPC ---
DCP Discharge Home Per MD, pt is medically stable to d/c home today and no identified barriers to discharge. SW spoke to pt and she is aware and ready for d/c today but fairly anxious about her friend coming over from [facility] this morning to provide transport and [id number]. Otherwise no known d/c concerns at this time. 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 Plan: Patient to d/c home back to [facility] via friend POV and no further SW needs at this time. Kimi Gonsales MSW
--- NOTE | 2022-07-16 18:21 | PM.DS.1 ---
History of Present Illness History of Present Illness Chief complaint: Near syncope,1 week of generalized weakness Narrative: Per history and physical: Ms. Miller is an 86W with PMH HTN, hypothyroidism, history of iron deficiency anemia who presents to the hospital with dizziness, presyncope. She states she has been feeling tired and generalized fatigue for nearly a week. She has had normal appetite. No nausea or vomiting or abdominal pain. No cough or shortness of breath. She thinks she has had low grade fever. She has noted no blood in her stool or any black tarry stool. She has never had an EGD or colonoscopy. She does not drink alcohol, she does not take NSAIDs. She has noted a couple pound weight loss. EMS evaluated after being called and noted upon standing her blood pressure dropped to the 80s and she became symptomatic. In the ED workup was done, vitals notable for afebrie, blood pressure in the systolic 140s-160s, heart rate in the 50s. Labs notable for hgb initially of 8.0, recheck 7.3, wbc 4.2, plts 206. Na 129, creatinine 0.66. Rectal exam noted guaiac positive brown stoool. She was ordered for blood and admitted for further treatment. Discharge Providers Provider Date of admission: 07/13/22 16:51 Discharge Date: 07/16/22 Primary care physician: Black Macedo MD Consults: 07/13/22 19:03 Consult to General Surgery Routine Comment: Consulting Provider: Angela Rojas Reason for consultation: gi bleed Has provider been notified: Yes Consult to Physical Therapy Evaluate & Treat Comment: Physician Instructions: Evaluate and Treat Discharge provider: Estela De MD Summary Hospital Course Discharge Diagnosis: 1. Acute blood loss anemia, symptomatic, improved 2. Heme-positive stool secondary to antritis and antral ulcers, H pylori status unknown 3. Hyponatremia, improving 4. Azotemia, resolved 5. Leukopenia, mild, resolved 6. Hypothyroidism, chronic, stable 7. Hypertension, chronic, stable 8. Pandiverticulosis on colonoscopy 9. Mixed hemorrhoids on colonoscopy 10. Chronic neck pain 11. Suspected actinic keratoses to the face, untreated 12. Hypokalemia, likely secondary to bowel prep, repleted Hospital Course: Patient was admitted with syncope and findings consistent with acute blood loss anemia. Stool was heme-positive. She received 1 unit of packed red blood cells with improvement in her hemoglobin. General surgery consultation was obtained. Patient underwent EGD and colonoscopy on 07/16/2022, with findings consisting of enteritis and small antral ulcers on the EGD and pandiverticulosis and mixed hemorrhoids on colonoscopy. H pylori testing was done and is pending at this time. She was placed on a PPI. Diet was advanced. On the date of discharge, patient reported she was back to her baseline. No syncopal symptoms. She was eating and drinking well. She did have some complaints of her chronic neck pain flaring up on the date of discharge, but this responded well to moist heat and Tylenol. Patient is discharged in stable condition and is instructed to follow-up with her PCP for review of her H pylori testing. Status at Discharge Cognitive/behavioral status at discharge: at baseline, oriented Overall status at discharge: patient is progressing back to baseline Exam Vital Signs (past 8 hours): - 07/16/22 11:00 Blood Pressure 123/46 L Oxygen Delivery Method Room Air Oxygen Flow Rate 0 Narrative Exam Narrative: GEN:? Elderly female, Alert and oriented x 3, NAD HEENT:NC, Face symmetric CHEST: Respiratory excursions symmetric, CTAB CV: RRR, no M/R/G ABD: Soft, NT/ND, BT present in all 4 quadrants, no organomegaly or masses EXTR: warm, well perfused, no C/C/E SKIN: warm and dry, no rash, multiple scabbed lesions across her face appearing consistent with actinic keratoses NEURO: Alert and oriented x 3, nonfocal Objective Labs 07/16/22 06:21 07/16/22 06:21 Labs: Laboratory Results - last 24 hr 07/16/22 07/16/22 06:21 06:21 WBC 4.8 RBC 2.59 L Hgb 8.3 L Hct 24.3 L MCV 93.6 MCH 32.0 MCHC 34.1 RDW 14.2 Plt Count 231 Neut % (Auto) 60.5 Lymph % (Auto) 25.0 [place] % (Auto) 10.4 Eos % (Auto) 3.2 Baso % (Auto) 0.9 Neut # (Auto) 2900 Lymph # (Auto) 1200 [place] # (Auto) 500 Eos # (Auto) 200 Baso # (Auto) 0 Sodium 129 L Potassium 3.3 L Chloride 95 L Carbon Dioxide 26 BUN 11 Creatinine 0.62 Estimated GFR > 60 BUN/Creatinine Ratio 17.7 Glucose 96 Calcium 8.3 L [facility] Medical History Cervicalgia Chicken pox (~1940) Fractures (~1944) Heavy menstrual period History of candidiasis Hypothyroidism (~2009) Measles (~194) Mumps (~194) Tension headache (~194) Unilateral primary osteoarthritis, right knee Surgical History Anesthesia History of bunionectomy (~1968) History of cataract removal with insertion of prosthetic lens (~2017) History of oral surgery History of oral surgery (~1944) History of tonsillectomy (~1941) [place] teeth removed (~1949) Family History Father History of heart disease Hypertension Mother Breast cancer Mental health problem Family/Other Multiple sclerosis Family/Other Mental health problem Social History household members: none Smoking Status: Never smoker alcohol intake: never Discharge Plan Discharge Plan Patient Disposition: Home Provider Discharge Comment: You were found to have small stomach ulcers on your scope. You have been placed on an acid laine to allow your ulcers to heal. H pylori testing was performed and is pending at this time. Please follow-up with your PCP to review results. Return to the ED for any recurrent lightheadedness/dizziness/feeling faint; black, tarry stools; blood in the stool; vomit that looks like coffee grounds or vomiting blood. Return for fevers, shortness of breath or inability to hold down food/fluids. Discharge orders & Medications Prescriptions: New pantoprazole 40 mg Tablet,Delayed Release (Dr/Ec) 40 mg PO 0700 Qty: 30 0RF Continued thyroid (pork) [HITCH TECHNICIAN Thyroid] 15 mg tablet 15 mg PO DAILY Label Comments: Take 1 tablet in addition to the 90 mg tablet thyroid (pork) [HITCH TECHNICIAN Thyroid] 90 mg tablet 90 mg PO DAILY Label Comments: Take 1 tablet in addition to the 15mg tablet losartan 100 mg tablet 50 mg PO 0700,1900 atenolol 100 mg tablet 50 mg PO 0700,1300 benzonatate 100 mg capsule 100 mg PO TID PRN (Reason: Cough) hydralazine 50 mg tablet 50 mg PO 0700,1300,1900 lorazepam 0.5 mg tablet 0.5 mg PO .hs prn Qty: 30 1RF Discontinued Synvisc 16 mg/2 mL syringe 16 mg intra-articular ONCE Qty: 6 0RF Follow up/Referrals: Black Macedo MD [Primary Care Provider] - Diet/Activity/Treatments Diet: Diet as Tolerated and Regular Activity: As tolerated Oxygen: N/A Visit Report/Discharge Packet Instructions: DI for Gastritis, DI for Gastric Ulcer, Helicobacter Pylori Infection, DI for Diverticulosis Stand Alone Forms: Patient Portal/API Discharge Data Primary Care Provider: Black Macedo Quality VTE Deep Vein Thrombosis/Pulmonary Embolism Present on Admission: No
== END 2022-07-16 11:15 | disposition home or self-care (01) | DRG 378 ==
LOC: ED 13:07 → AC 16:52
PROVIDERS: Family Medicine; Nurse Practitioner Family; Surgery; Admitting Provider Internal Medicine; Emergency Provider Emergency Medicine; PCP Family Medicine; Referring Provider Emergency Medicine; Visit Provider Internal Medicine
PROC: 0DJ08ZZ Inspection of Upper Intestinal Tract, Via Natural or Artificial Opening Endoscopic (ICD-10-PCS; CPT 43235; principal; 2022-07-15 12:15)
PROC: 0DJD8ZZ Inspection of Lower Intestinal Tract, Via Natural or Artificial Opening Endoscopic (ICD-10-PCS; CPT 45378; 2022-07-15 12:15)
DX: K25.4 Chronic or unspecified gastric ulcer with hemorrhage (principal); D62 Acute posthemorrhagic anemia; E87.1 Hypo-osmolality and hyponatremia; K57.32 Diverticulitis of large intestine without perforation or abscess without bleeding; K52.9 Noninfective gastroenteritis and colitis, unspecified; E03.9 Hypothyroidism, unspecified; I10 Essential (primary) hypertension; K64.9 Unspecified hemorrhoids; R79.89 Other specified abnormal findings of blood chemistry; E87.6 Hypokalemia; Z66 Do not resuscitate; Z20.822 Contact with and (suspected) exposure to COVID-19
CPT/HCPCS: 36415; 36430; 43235; 45378; 71045; 74177; 80048; 80053; 82550; 83540; 83550; 83690; 83880; 84145; 84484; 85014; 85018; 85025; 85045; 85610; 86850; 86870; 86900; 86901; 87635; 93005; 97161; 99231; 99284; C9803; P9016; C9113; J2704; Q9967

== ENCOUNTER → 2022-08-29 10:56 | Outpatient (CLI) | payer MEDICARE, SELFPAY ==
[2022-07-13 19:30] VITALS: BMI 23.6
[2022-08-29 19:56] LABS: Add Manual Diff / Slide Review NO; Basophils Absolute Auto 100 /uL (0-100); Basophils Percent Auto 1.2 % (0-2); Eosinophils Absolute Auto 100 /uL (0-450); Hematocrit 35.1 % (36-46); Lymphocytes Absolute Auto 1400 /uL (1100-4500); Lymphocytes Percent Auto 30.9 % (25-40); Mean Corpuscular HGB Conc 34.3 % (30-36); Mean Corpuscular Hemoglobin 31.7 PG (26-34); Mean Corpuscular Volume 92.5 fL (80-100); Monocytes Absolute Auto 500 /uL (0-900); Monocytes Percent Auto 10.3 % (3-14); Neutrophils Absolute Auto 2400 /uL (1500-7000); Neutrophils Percent Auto 54.6 % (50-75); Platelet Count 301 X10^3/uL (150-400); Red Blood Cell Count 3.79 X10^6/uL (4.0-5.2); Red Cell Distribution Width 14.5 % (11.6-14.8); White Blood Cell Count 4.4 X10^3/uL (4.5-11.0)
[2022-08-29 20:16] LABS: Alanine Aminotransferase 20 IU/L (<35); Albumin 4.1 g/dL (3.5-5.0); Albumin Globulin Ratio 1.4 (1.0-2.8); Alkaline Phosphatase 57 U/L (38-126); Aspartate Aminotransferase 26 IU/L (14-36); BUN Creatinine Ratio 24.2 (6-22); Bilirubin Total 0.5 mg/dL (0.2-1.3); Blood Urea Nitrogen 15 mg/dL (7-17); Calcium 9.6 mg/dL (8.4-10.2); Carbon Dioxide 27 mmol/L (22-32); Chloride 92 mmol/L (98-107); Estimated Glomerular Filt Rate > 60 mL/min (>60); Glucose 98 mg/dL (80-110); HEMOLYSIS < 15 (0-50); Potassium 4.1 mmol/L (3.4-5.1); Sodium 129 mmol/L (137-145); Total Protein 7.1 g/dL (6.3-8.2)
== END ==
PROVIDERS: PCP Family Medicine; Visit Provider Family Medicine
DX: K25.0 Acute gastric ulcer with hemorrhage (principal); D64.9 Anemia, unspecified; I10 Essential (primary) hypertension
CPT/HCPCS: 80053; 85025

== ENCOUNTER → 2022-09-12 15:39 | Outpatient (ROUT) | payer MEDICARE, SELFPAY ==
[2022-07-13 19:30] VITALS: BMI 23.6
== END ==
PROVIDERS: PCP Family Medicine; Visit Provider Dermatology
DX: L98.499 Non-pressure chronic ulcer of skin of other sites with unspecified severity (principal)
CPT/HCPCS: 87070; 87075; 87077; 87147; 87186; 87205

== ENCOUNTER → 2022-09-26 13:05 | Outpatient (CLI) | payer MEDICARE, SELFPAY ==
[2022-07-13 19:30] VITALS: BMI 23.6
[2022-09-26 14:07] LABS: Add Manual Diff / Slide Review NO; Basophils Absolute Auto 0 /uL (0-100); Basophils Percent Auto 0.7 % (0-2); Eosinophils Absolute Auto 100 /uL (0-450); Eosinophils Percent Auto 2.9 % (2-4); Hemoglobin 11.7 g/dL (12.0-16.0); Lymphocytes Absolute Auto 1400 /uL (1100-4500); Lymphocytes Percent Auto 29.7 % (25-40); Mean Corpuscular HGB Conc 34.3 % (30-36); Mean Corpuscular Hemoglobin 31.4 PG (26-34); Mean Corpuscular Volume 91.5 fL (80-100); Monocytes Absolute Auto 500 /uL (0-900); Monocytes Percent Auto 9.9 % (3-14); Neutrophils Absolute Auto 2700 /uL (1500-7000); Neutrophils Percent Auto 56.8 % (50-75); Platelet Count 253 X10^3/uL (150-400); Red Blood Cell Count 3.71 X10^6/uL (4.0-5.2); Red Cell Distribution Width 14.5 % (11.6-14.8); White Blood Cell Count 4.7 X10^3/uL (4.5-11.0)
[2022-09-26 14:34] LABS: Alanine Aminotransferase 23 IU/L (<35); Albumin 4.2 g/dL (3.5-5.0); Albumin Globulin Ratio 1.6 (1.0-2.8); Alkaline Phosphatase 59 U/L (38-126); Aspartate Aminotransferase 26 IU/L (14-36); Bilirubin Total 0.2 mg/dL (0.2-1.3); Blood Urea Nitrogen 17 mg/dL (7-17); Calcium 9.4 mg/dL (8.4-10.2); Carbon Dioxide 27 mmol/L (22-32); Chloride 96 mmol/L (98-107); Estimated Glomerular Filt Rate > 60 mL/min (>60); Globulin 2.7 g/dL (1.7-4.1); Glucose 121 mg/dL (80-110); HEMOLYSIS < 15 (0-50); Potassium 4.2 mmol/L (3.4-5.1); Sodium 132 mmol/L (137-145); Total Protein 6.9 g/dL (6.3-8.2)
[2022-09-26 15:01] LABS: TSH w/ Reflex to FT4 0.87 uIU/mL (0.47-4.68)
[2022-09-26 19:45] LABS: Vitamin D 25 Hydroxy (D3) 65.9 ng/mL (30.0-100.0)
[2022-09-27 07:34] LABS: Thyroid Peroxidase Antibodies 11 IU/mL (0-34); Triiodothyronine T3 Total 112 ng/dL (71-180)
[2022-09-27 12:58] LABS: Free T4, Direct Thyroxine 1.34 ng/dL (0.78-2.19)
[2022-09-28 14:58] LABS: Dehydroepiandrosterone Sulfate 66.7 ug/dL (13.9-142.8)
[2022-10-02 18:34] LABS: Matrix metalloprot 9 486 ng/mL (.)
[2022-10-07 22:35] LABS: Thyroglobulin Level 3.9 ng/mL (.)
[2022-10-09 10:05] LABS: Triiodothyronine T3 Reverse 20.8
== END ==
PROVIDERS: PCP Family Medicine; Referring Provider Family Medicine; Visit Provider Family Medicine
DX: K25.0 Acute gastric ulcer with hemorrhage (principal); D64.9 Anemia, unspecified; E03.9 Hypothyroidism, unspecified; R53.82 Chronic fatigue, unspecified; E63.9 Nutritional deficiency, unspecified; Z77.120 Contact with and (suspected) exposure to mold (toxic)
CPT/HCPCS: 36415; 80053; 82306; 82627; 83520; 84432; 84439; 84443; 84480; 84481; 84482; 85025; 86160; 86376

== ENCOUNTER → 2022-10-23 13:34 | Outpatient (CLI) | payer MEDICARE, SELFPAY ==
[2022-10-18 11:31] VITALS: BMI 23.6
[2022-10-23 20:02] LABS: Add Manual Diff / Slide Review NO; Basophils Absolute Auto 100 /uL (0-100); Basophils Percent Auto 1.5 % (0-2); Eosinophils Absolute Auto 200 /uL (0-450); Eosinophils Percent Auto 3.2 % (2-4); Hematocrit 34.7 % (36-46); Lymphocytes Absolute Auto 1700 /uL (1100-4500); Lymphocytes Percent Auto 34.9 % (25-40); Mean Corpuscular HGB Conc 34.4 % (30-36); Mean Corpuscular Hemoglobin 31.3 PG (26-34); Mean Corpuscular Volume 90.9 fL (80-100); Monocytes Absolute Auto 500 /uL (0-900); Monocytes Percent Auto 10.5 % (3-14); Neutrophils Absolute Auto 2500 /uL (1500-7000); Neutrophils Percent Auto 49.9 % (50-75); Platelet Count 266 X10^3/uL (150-400); Red Blood Cell Count 3.82 X10^6/uL (4.0-5.2); Red Cell Distribution Width 14.6 % (11.6-14.8)
== END ==
PROVIDERS: PCP Family Medicine; Visit Provider Family Medicine
DX: R53.82 Chronic fatigue, unspecified (principal); D64.9 Anemia, unspecified; K25.0 Acute gastric ulcer with hemorrhage; L03.90 Cellulitis, unspecified
CPT/HCPCS: 85025

== ENCOUNTER → 2022-10-25 09:12 | Outpatient (CLI) | payer MEDICARE, SELFPAY ==
[2022-10-18 11:31] VITALS: BMI 23.6
[2022-10-27 20:01] LABS: Fecal Immunochemical Test Negative (Negative)
== END ==
PROVIDERS: PCP Family Medicine; Visit Provider Family Medicine
DX: D64.9 Anemia, unspecified (principal); K25.0 Acute gastric ulcer with hemorrhage; L03.90 Cellulitis, unspecified; R53.82 Chronic fatigue, unspecified
CPT/HCPCS: 82274

== ENCOUNTER → 2022-10-26 09:16 | Outpatient (CLI) | payer MEDICARE, SELFPAY ==
[2022-10-18 11:31] VITALS: BMI 23.6
[2022-10-26 19:33] LABS: Appearance Urine UA CLEAR; Bilirubin Urine UA NEGATIVE (NEGATIVE); Color Urine UA YELLOW; Glucose Urine UA NEGATIVE (Negative); Ketones Urine UA NEGATIVE (NEGATIVE); Leukocyte Esterase Urine UA 1+ (NEGATIVE); Nitrite Urine UA POSITIVE (Negative); Occult Blood Urine UA NEGATIVE (Negative); Protein Urine UA NEGATIVE (Negative); Urobilinogen Urine UA 0.2 E.U./dL (0.2)
[2022-10-26 19:37] LABS: pH Urine UA 7.5 (4.5-8.0)
[2022-10-26 20:02] LABS: Bacteria Urine Many (>30); Culture Indicated Urine Specimen Cultured; RBC Urine None Seen (0-5/HPF); Squamous Epithelial Cell Urine 0-1 /HPF (0-5/HPF); WBC Urine 10-30/HPF (0-5/HPF)
== END ==
PROVIDERS: PCP Family Medicine; Visit Provider Family Medicine
DX: I10 Essential (primary) hypertension (principal)
CPT/HCPCS: 81001; 87077; 87086; 87186

== ENCOUNTER → 2022-11-28 15:18 | Outpatient (CLI) | payer MEDICARE, SELFPAY ==
[2022-10-18 11:31] VITALS: BMI 23.6
[2022-11-28 16:30] LABS: Add Manual Diff / Slide Review NO; Basophils Absolute Auto 100 /uL (0-100); Basophils Percent Auto 1.2 % (0-2); Eosinophils Absolute Auto 200 /uL (0-450); Eosinophils Percent Auto 3.1 % (2-4); Hematocrit 33.8 % (36-46); Hemoglobin 11.8 g/dL (12.0-16.0); Lymphocytes Absolute Auto 1400 /uL (1100-4500); Lymphocytes Percent Auto 27.6 % (25-40); Mean Corpuscular HGB Conc 34.8 % (30-36); Mean Corpuscular Hemoglobin 31.4 PG (26-34); Mean Corpuscular Volume 90.2 fL (80-100); Monocytes Absolute Auto 500 /uL (0-900); Monocytes Percent Auto 8.8 % (3-14); Neutrophils Absolute Auto 3100 /uL (1500-7000); Neutrophils Percent Auto 59.3 % (50-75); Platelet Count 268 X10^3/uL (150-400); Red Blood Cell Count 3.74 X10^6/uL (4.0-5.2); Red Cell Distribution Width 15.5 % (11.6-14.8); White Blood Cell Count 5.2 X10^3/uL (4.5-11.0)
[2022-11-28 16:31] LABS: Reticulocyte Count, Percent 1.4 % (1.1-2.6)
[2022-11-28 17:06] LABS: Alanine Aminotransferase 23 IU/L (<35); Albumin 4.3 g/dL (3.5-5.0); Albumin Globulin Ratio 1.4 (1.0-2.8); Alkaline Phosphatase 50 U/L (38-126); Aspartate Aminotransferase 27 IU/L (14-36); BUN Creatinine Ratio 28.6 (6-22); Bilirubin Total 0.5 mg/dL (0.2-1.3); Blood Urea Nitrogen 22 mg/dL (7-17); Calcium 9.5 mg/dL (8.4-10.2); Carbon Dioxide 28 mmol/L (22-32); Chloride 94 mmol/L (98-107); Estimated Glomerular Filt Rate > 60 mL/min (>60); Globulin 3.1 g/dL (1.7-4.1); Glucose 108 mg/dL (80-110); HEMOLYSIS < 15 (0-50); Iron 105 ug/dL (37-170); Lactate Dehydrogenase 159 U/L (120-246); Potassium 3.9 mmol/L (3.4-5.1); Sodium 131 mmol/L (137-145); Total Protein 7.4 g/dL (6.3-8.2)
[2022-11-28 17:16] LABS: Transferrin 254 mg/dL (206-381)
[2022-11-28 17:34] LABS: HEMOLYSIS < 15 (0-50); Percent Iron Saturation 28 % (15-50); Total Iron Binding Capacity 370 ug/dL (265-497)
[2022-11-28 17:40] LABS: Ferritin 21 ng/mL (11-264)
[2022-11-29 06:31] LABS: Haptoglobin 228 mg/dL (41-333)
[2022-11-29 19:32] LABS: Erythropoietin 12.5 mIU/mL (2.6-18.5)
== END ==
PROVIDERS: PCP Family Medicine; Referring Provider Family Medicine; Visit Provider Family Medicine
DX: N39.0 Urinary tract infection, site not specified (principal); D64.9 Anemia, unspecified; R53.82 Chronic fatigue, unspecified; Z77.120 Contact with and (suspected) exposure to mold (toxic); F41.9 Anxiety disorder, unspecified; E03.9 Hypothyroidism, unspecified; E63.9 Nutritional deficiency, unspecified
CPT/HCPCS: 36415; 80053; 82668; 82728; 83010; 83540; 83550; 83615; 85025; 85045; 86140

== ENCOUNTER → 2023-02-07 13:40 | Outpatient (CLI) | payer MEDICARE, SELFPAY ==
[2022-10-18 11:31] VITALS: BMI 23.6
== END ==
PROVIDERS: PCP Family Medicine; Visit Provider Physician Assistant Medical
DX: Z85.828 Personal history of other malignant neoplasm of skin (principal)
CPT/HCPCS: 87070; 87075; 87077; 87147; 87186; 87205

== ENCOUNTER → 2023-04-02 14:09 | Outpatient (CLI) | payer MEDICARE, SELFPAY ==
[2022-10-18 11:31] VITALS: BMI 23.6
[2023-04-02 19:07] LABS: Add Manual Diff / Slide Review NO; Basophils Absolute Auto 0 /uL (0-100); Basophils Percent Auto 0.9 % (0-2); Eosinophils Absolute Auto 100 /uL (0-450); Eosinophils Percent Auto 3.6 % (2-4); Hematocrit 33.9 % (36-46); Hemoglobin 11.9 g/dL (12.0-16.0); Lymphocytes Absolute Auto 1400 /uL (1100-4500); Lymphocytes Percent Auto 33.7 % (25-40); Mean Corpuscular Hemoglobin 32.6 PG (26-34); Mean Corpuscular Volume 93.1 fL (80-100); Monocytes Absolute Auto 400 /uL (0-900); Monocytes Percent Auto 10.5 % (3-14); Neutrophils Absolute Auto 2100 /uL (1500-7000); Neutrophils Percent Auto 51.3 % (50-75); Platelet Count 222 X10^3/uL (150-400); Red Blood Cell Count 3.64 X10^6/uL (4.0-5.2); Red Cell Distribution Width 13.9 % (11.6-14.8); White Blood Cell Count 4.1 X10^3/uL (4.5-11.0)
[2023-04-02 19:25] LABS: HEMOLYSIS < 15 (0-50); Iron 76 ug/dL (37-170)
[2023-04-02 19:30] LABS: Alanine Aminotransferase 17 IU/L (<35); Albumin 3.9 g/dL (3.5-5.0); Albumin Globulin Ratio 1.5 (1.0-2.8); Alkaline Phosphatase 58 U/L (38-126); Aspartate Aminotransferase 26 IU/L (14-36); BUN Creatinine Ratio 23.9 (6-22); Bilirubin Total 0.5 mg/dL (0.2-1.3); Blood Urea Nitrogen 16 mg/dL (7-17); Calcium 9.5 mg/dL (8.4-10.2); Carbon Dioxide 26 mmol/L (22-32); Chloride 96 mmol/L (98-107); Estimated Glomerular Filt Rate > 60 mL/min (>60); Globulin 2.6 g/dL (1.7-4.1); Glucose 110 mg/dL (80-110); HEMOLYSIS < 15 (0-50); Potassium 4.1 mmol/L (3.4-5.1); Sodium 130 mmol/L (137-145); Total Protein 6.5 g/dL (6.3-8.2)
[2023-04-02 19:39] LABS: Percent Iron Saturation 26 % (15-50); Total Iron Binding Capacity 287 ug/dL (265-497); Transferrin 209 mg/dL (206-381)
[2023-04-02 19:48] LABS: Free T4, Direct Thyroxine 1.17 ng/dL (0.78-2.19)
[2023-04-02 19:49] LABS: Free T3, Triiodothyronine Free 3.19 pg/mL (2.77-5.27)
[2023-04-02 20:04] LABS: Ferritin 44 ng/mL (11-264)
[2023-04-02 20:30] LABS: Vitamin D 25 Hydroxy (D3) 71.3 ng/mL (30.0-100.0)
[2023-04-04 07:23] LABS: Triiodothyronine T3 Total 96 ng/dL (71-180)
[2023-04-04 22:33] LABS: Anti Thyroglobulin Antibody <1.0 IU/mL (0.0-0.9); Thyroid Peroxidase Antibodies 11 IU/mL (0-34)
[2023-04-23 10:57] LABS: Triiodothyronine T3 Reverse 17.3
== END ==
PROVIDERS: PCP Family Medicine; Visit Provider Family Medicine
DX: D64.9 Anemia, unspecified (principal); R53.82 Chronic fatigue, unspecified; E03.9 Hypothyroidism, unspecified; F41.9 Anxiety disorder, unspecified; I10 Essential (primary) hypertension; G47.9 Sleep disorder, unspecified; E63.9 Nutritional deficiency, unspecified
CPT/HCPCS: 80053; 82306; 82627; 82728; 83540; 83550; 84439; 84480; 84481; 84482; 85025; 86376; 86800

== ENCOUNTER → 2023-04-05 08:09 | Outpatient (CLI) | payer MEDICARE, SELFPAY ==
[2022-10-18 11:31] VITALS: BMI 23.6
[2023-04-09 19:32] LABS: Fecal Immunochemical Test Negative (Negative)
== END ==
PROVIDERS: PCP Family Medicine; Visit Provider Family Medicine
DX: D64.9 Anemia, unspecified (principal)
CPT/HCPCS: 82274

== ENCOUNTER → 2023-05-03 09:18 | Outpatient (CLI) | payer MEDICARE, SELFPAY ==
[2022-10-18 11:31] VITALS: BMI 23.6
[2023-05-03 21:26] LABS: Reticulocyte Count, Percent 1.1 % (1.1-2.6)
[2023-05-03 21:43] LABS: Appearance Urine UA CLOUDY; Bilirubin Urine UA NEGATIVE (NEGATIVE); Color Urine UA YELLOW; Glucose Urine UA NEGATIVE (Negative); Ketones Urine UA NEGATIVE (NEGATIVE); Leukocyte Esterase Urine UA 1+ (NEGATIVE); Nitrite Urine UA NEGATIVE (Negative); Occult Blood Urine UA NEGATIVE (Negative); Protein Urine UA NEGATIVE (Negative); Specific Gravity Urine UA 1.015 (1.000-1.035); Urobilinogen Urine UA 0.2 E.U./dL (0.2)
[2023-05-03 22:06] LABS: Bacteria Urine Many (>30); Culture Indicated Urine Specimen Cultured; RBC Urine 0-1/HPF (0-5/HPF); Squamous Epithelial Cell Urine 0-1 /HPF (0-5/HPF); WBC Urine 1-5/HPF (0-5/HPF); pH Urine UA 7.5 (4.5-8.0)
[2023-05-04 17:52] LABS: Vitamin B12 900 pg/mL (239-931)
== END ==
PROVIDERS: PCP Family Medicine; Visit Provider Family Medicine
DX: R10.9 Unspecified abdominal pain (principal); D64.9 Anemia, unspecified
CPT/HCPCS: 81001; 82607; 85045; 87077; 87086; 87186

== ENCOUNTER 2023-09-29 21:34 | Emergency (ER) | payer MEDICARE, SELFPAY ==
[2022-10-18 11:31] VITALS: BMI 23.6
[2023-09-29] VITALS (24 sets, daily range): BP systolic 174–250; BP diastolic 79–112; PULSE 50–65; RESP 5–28; TEMP 36.6; O2SAT 95–98; BMI 23.2
--- NOTE | 2023-09-29 21:44 | DI.RAD.S_ITS ---
PROCEDURE: XR CHEST 1V INDICATIONS: chest pain TECHNIQUE: One view of the chest was acquired. COMPARISON: [facility], , CHEST 1 VIEW, 06/27/2017, 18:22. [facility], , XR CHEST 1V, 07/13/2022, 12:38. FINDINGS: Surgical changes and devices: None. Lungs and pleura: On this semiupright portable chest examination, no large pneumothorax or large pleural effusions are seen. No focal infiltrates are seen. Mediastinum: The cardiac contours are within normal limits. The aorta demonstrates calcification and tortuosity. Bones and chest wall: No suspicious bony lesions. Overlying soft tissues appear unremarkable. IMPRESSION: Limited portable chest examination, without a significant cardiopulmonary abnormality identified. Dictated by: Braxton Bhatia M.D. on 09/29/2023 at 21:21 Approved by: Braxton Bhatia M.D. on 09/29/2023 at 21:22
[2023-09-29 21:51] LABS: Add Manual Diff / Slide Review NO; Basophils Absolute Auto 0 /uL (0-100); Basophils Percent Auto 1.2 % (0-2); Eosinophils Absolute Auto 200 /uL (0-450); Eosinophils Percent Auto 6.2 % (2-4); Hematocrit 33.4 % (36-46); Hemoglobin 11.5 g/dL (12.0-16.0); Lymphocytes Absolute Auto 1500 /uL (1100-4500); Lymphocytes Percent Auto 36.9 % (25-40); Mean Corpuscular HGB Conc 34.6 % (30-36); Mean Corpuscular Hemoglobin 32.4 PG (26-34); Mean Corpuscular Volume 93.8 fL (80-100); Monocytes Absolute Auto 500 /uL (0-900); Monocytes Percent Auto 12.8 % (3-14); Neutrophils Absolute Auto 1700 /uL (1500-7000); Neutrophils Percent Auto 42.9 % (50-75); Platelet Count 258 X10^3/uL (150-400); Red Blood Cell Count 3.56 X10^6/uL (4.0-5.2); Red Cell Distribution Width 14.1 % (11.6-14.8)
[2023-09-29 21:58] LABS: Prothrombin Time 10.9 SECONDS (9.4-12.5)
[2023-09-29 22:01] LABS: PTT Partial Thromboplastin Tim 34 SECONDS (25.1-36.5)
[2023-09-29 22:06] LABS: Alanine Aminotransferase 17 IU/L (<35); Albumin 4.3 g/dL (3.5-5.0); Albumin Globulin Ratio 1.7 (1.0-2.8); Alkaline Phosphatase 61 U/L (38-126); Aspartate Aminotransferase 24 IU/L (14-36); BUN Creatinine Ratio 31.6 (6-22); Bilirubin Total 0.4 mg/dL (0.2-1.3); Blood Urea Nitrogen 18 mg/dL (7-17); Calcium 9.3 mg/dL (8.4-10.2); Carbon Dioxide 25 mmol/L (22-32); Chloride 100 mmol/L (98-107); Creatine Kinase 48 U/L (30-135); Estimated Glomerular Filt Rate > 60 mL/min (>60); Globulin 2.5 g/dL (1.7-4.1); Glucose 108 mg/dL (80-110); HEMOLYSIS < 15 (0-50); Lipase 176 U/L (23-300); Potassium 3.9 mmol/L (3.4-5.1); Sodium 131 mmol/L (137-145); Total Protein 6.8 g/dL (6.3-8.2)
[2023-09-29 22:17] LABS: Troponin I < 0.012 ng/mL (0.01-0.034)
[2023-09-29] MEDS: HYDRALAZINE 20 MG/ML VIAL 10 MG IV (22:27)
--- NOTE | 2023-09-29 23:52 | ED_ITS ---
HPI - General Adult General Chief complaint: Hypertension Stated complaint: [id number]- CP Time Seen by Provider: 09/29/23 21:47 Source: patient and EMS Mode of arrival: EMS History of Present Illness HPI narrative: 87-year-old female resident of [facility] with history of difficult to control hypertension, feels that it is much worse, was checked earlier in the day by [facility], with elevated blood pressure, took an extra oral dose of hydralazine as she has done in the past, measured further elevation of her blood pressure, with some chest discomfort that seems to have resolved. She was afterhours transported by air ambulance from [place] to [facility], then ground ambulance here for further blood pressure evaluation. She reports many years duration of difficult to control blood pressure, has tried many regimens in the past, most recently for the last 2 years on a stable regimen combination of hydralazine and atenolol and losartan. She usually takes losartan 50 mg tablet by mouth twice daily. Atenolol 50 mg 2 tablets in the morning and 2 tablets at noon, hydralazine 25 mg tablets 2 tablets by mouth 3 times daily. Despite this regimen not missing any doses her blood pressure seemed to be elevated. She had some chest discomfort earlier that seems to be resolved without specific treatment. She has chronic frequent headaches for which she receives chiropractic manipulation, she did have a headache earlier that seem typical of this discomfort, that seems better now. No weakness to face arms legs. She arrived here by air ambulance from [facility] for further evaluation of her blood pressure Related Data Home Medications Medication Instructions Recorded Confirmed benzonatate 100 mg capsule 100 mg PO TID PRN Cough 09/06/21 03/30/23 thyroid (pork) 15 mg tablet (MOSAICIST 15 mg PO DAILY 09/06/21 03/30/23 Thyroid) thyroid (pork) 90 mg tablet (MOSAICIST 90 mg PO DAILY 09/06/21 03/30/23 Thyroid) hydralazine 25 mg tablet mg PO 02/07/23 03/30/23 losartan 50 mg tablet 50 mg PO BID 02/07/23 03/30/23 Previous Rx's Medication Instructions Recorded lorazepam 0.5 mg tablet 0.5 mg PO .hs prn #30 tabs 11/02/22 Manager Ui Knee brace left #1 ea 12/20/22 hylan g-f 20 16 mg/2 mL 16 mg (2 mL) intra-articular QWEEK 03/12/23 intra-articular syringe (Synvisc) #6 mL cyclobenzaprine 10 mg tablet 10 mg PO BEDTIME PRN muscle spasm 03/23/23 #20 tabs labetalol 200 mg tablet 200 mg PO BID for BP control, in 09/30/[address] place of Atenolol #60 tabs Allergies Allergy/AdvReac Type Severity Reaction Status Date / Time amlodipine Allergy Mild Verified 03/30/23 13:38 epinephrine Allergy Mild Verified 03/30/23 13:38 hydrochlorothiazide Allergy Mild Verified 03/30/23 13:38 ciprofloxacin [From CIPRO] Allergy Unknown Verified 03/30/23 13:38 Sulfa (Sulfonamide Allergy Unknown Verified 03/30/23 13:38 Antibiotics) [SULFA (SULFONAMIDE ANTIBIOTICS)] epinipherine AdvReac Severe Palpitation Uncoded 03/30/23 13:38 s Review of Systems Review of Systems Narrative: as per HPI Cardiovascular Comments: She admits to episode of chest pain in context of elevated blood pressure earlier today, resolved prior/during EMS transport without specific treatment. No chest pain now. Patient History Medical History Tension headache (~1940) Fractures (~1944) Mumps (~1942) Measles (~194) Chicken pox (~1940) Heavy menstrual period History of candidiasis Unilateral primary osteoarthritis, right knee Hypothyroidism (~2009) Cervicalgia Surgical History Anesthesia History of bunionectomy (~1968) History of cataract removal with insertion of prosthetic lens (~2018) History of oral surgery History of oral surgery (~194) History of tonsillectomy (~194) [place] teeth removed (~1950) Family History Father History of heart disease Hypertension Mother Breast cancer Mental health problem Family/Other Multiple sclerosis Family/Other Mental health problem Social History household members: none Smoking Status: Never smoker alcohol intake: never Smoking Status: Never smoker Substance Use Type: does not use Exam Initial Vital Signs Initial Vital Signs: Vital Signs Temperature 97.8 F 09/29/23 21:40 Pulse Rate 65 09/29/23 21:40 Respiratory Rate 18 09/29/23 21:40 Blood Pressure 232/107 H 09/29/23 21:40 Pulse Oximetry 97 09/29/23 21:40 Oxygen Delivery Method Room Air 09/29/23 21:40 Const General: cooperative HENMT Ears: TM's normal bilaterally Nose: No nasal discharge Face and sinus: face symmetric Mouth: moist mucous membranes HENMT Other: Patient with scabbing a end of her nose and upper lip areas that she attributes to biopsies for basal cell carcinoma, she has scarring of her face that she attributes to skin cancer, stating that she is following up with dermatology Eyes Eyelids: eyelids normal Conjunctivae: conjunctivae normal Sclera: sclerae normal Neck Neck: normal visual inspection, trachea midline and No midline deformity Chest Chest: normal inspection of the chest Resp Effort & Inspection: normal respiratory effort, able to speak in complete sentences, no respiratory distress and no use of accessory muscles Auscultation: clear to auscultation bilaterally, no rales, no rhonchi and no wheezes Cardio Rate: regular rate Rhythm: regular rhythm Heart Sounds: no murmurs GI Inspection: non-distended Palpation: soft and No guarding Back/Spine/Pelvis Cervical Spine: cervical ROM normal Thoracic/Lumbar Spine: thoracic and lumbar spine normal to inspection Skin General: No petechiae Neuro General: patient alert, patient oriented x3 and no focal motor deficits Extrem General: full ROM, no clubbing, cyanosis or edema and no pedal edema Psych Attitude: cooperative Thought Content: normal Course Course Course Narrative: Elevated blood pressures, history of hypertension on multidrug regimen control, 232/107 blood pressure on arrival from EMS air ambulance. IV hydralazine 10 mg, since she is used 2 hydralazine regular regimen and as needed dosing. Orders Ordered: Discontinued Medications Atenolol (Atenolol 50 Mg Tablet) 50 mg PO NOW ONE Stop: 09/30/23 05:11 Last Admin: 09/30/23 05:41 Dose: Not Given Documented By: NADJA Hydralazine HCl (Hydralazine 20 Mg/Ml Vial) 10 mg IV Q6HR PRN PRN Reason: Hypertension Last Admin: 09/29/23 22:27 Dose: 10 mg Documented By: JIMMIE Hydralazine HCl (Hydralazine 20 Mg/Ml Vial) 10 mg IV Q6HR PRN PRN Reason: Hypertension Last Admin: 09/30/23 00:17 Dose: 10 mg Documented By: JIMMIE Hydralazine HCl (Hydralazine 25 Mg Tablet) 25 mg PO NOW ONE Stop: 09/30/23 05:11 Last Admin: 09/30/23 05:43 Dose: 25 mg Documented By: JONI Sodium Chloride (Normal Saline 0.9%) 1,000 mls @ 1,000 mls/hr IV BOLUS ONE Stop: 09/29/23 23:00 Last Admin: 09/29/23 22:04 Dose: Not Given Documented By: JIMMIE Labetalol HCl (Labetalol 100 Mg Tablet) 200 mg PO NOW ONE Stop: 09/30/23 05:31 Last Admin: 09/30/23 05:42 Dose: 200 mg Documented By: JONI Losartan Potassium (Losartan 50 Mg Tablet) 50 mg PO NOW ONE Stop: 09/30/23 05:11 Last Admin: 09/30/23 05:43 Dose: 50 mg Documented By: JONI Tramadol HCl (Tramadol 50 Mg Tablet) 50 mg PO NOW ONE Stop: 09/29/23 22:02 Last Admin: 09/29/23 22:04 Dose: Not Given Documented By: JIMMIE Reevaluation(s) Reevaluation #1: Blood pressure 188/97 some improvement. Troponin negative. EKG without obvious ischemic changes. Sodium 131 low noted but stable range since last year, glucose normal. Renal function unremarkable. Chest x-ray report negative for acute changes. Further monitor her blood pressure. Her morning medications would be due at 6:00 a.m.. She is here now from [facility] with no transportation or place to go, delinquency prevention social worker consult in the morning. Reevaluation #2: Blood pressure had climbed to 207/100, asymptomatic, repeat IV hydralazine 10 mg. Subsequent blood pressure 177/97 improved. She will be due for her morning medications at 6:00 a.m., once given then hopefully we can have high school social studies tutor assist with transport back to [facility] Reevaluation #3: Blood pressure 140s over 70s, seems to be stable. Patient asking about what she should take as outpatient regimen. Case discussed with on-call Cardiology Dr. Luo, who feels the losartan and atenolol and hydralazine doses are about maximum, suggest having patient use amlodipine 2.5 mg daily additional for now, and following up with her regular provider. Consultations Consultation #1: Case discussed with cardiology Dr. Stephens, suggests change in medical regimen to amlodipine, when this was attempted for addition on discharge medications was listed as an allergy. Call back to Cardiology, who suggests change of her atenolol to labetalol for better antihypertensive effect. Patient interested in this approach. Vital Signs Vital signs: Vital Signs - 8 hr 09/29/23 21:40 09/29/23 21:46 09/29/23 21:58 Temperature 97.8 F Pulse Rate 65 54 L 58 L Respiratory Rate 18 28 H 13 Blood Pressure 232/107 H Pulse Oximetry 97 96 97 Oxygen Delivery Method Room Air 09/29/23 21:58 09/29/23 22:00 09/29/23 22:00 Temperature Pulse Rate 54 L Respiratory Rate 7 L Blood Pressure 250/112 H 230/91 H Pulse Oximetry 98 Oxygen Delivery Method 09/29/23 22:15 09/29/23 22:15 09/29/23 22:27 Temperature Pulse Rate 50 L 50 L Respiratory Rate 7 L Blood Pressure 214/102 H 214/102 H Pulse Oximetry 98 Oxygen Delivery Method 09/29/23 22:30 09/29/23 22:30 09/29/23 22:36 Temperature Pulse Rate 51 L 51 L Respiratory Rate 17 7 L Blood Pressure 233/95 H Pulse Oximetry 98 98 Oxygen Delivery Method 09/29/23 22:36 09/29/23 22:40 09/29/23 22:40 Temperature Pulse Rate 50 L Respiratory Rate 7 L Blood Pressure 204/93 H 188/86 H Pulse Oximetry 97 Oxygen Delivery Method 09/29/23 22:45 09/29/23 22:45 09/29/23 22:50 Temperature Pulse Rate 50 L 51 L Respiratory Rate 6 L 6 L Blood Pressure 182/84 H Pulse Oximetry 96 96 Oxygen Delivery Method 09/29/23 22:50 09/29/23 22:55 09/29/23 22:55 Temperature Pulse Rate 51 L Respiratory Rate 8 L Blood Pressure 181/80 H 178/82 H Pulse Oximetry 97 Oxygen Delivery Method 09/29/23 23:00 09/29/23 23:00 09/29/23 23:00 Temperature Pulse Rate 53 L 54 L Respiratory Rate 13 Blood Pressure 174/79 H 174/79 H Pulse Oximetry 95 Oxygen Delivery Method 09/29/23 23:06 09/29/23 23:06 09/29/23 23:10 Temperature Pulse Rate 54 L 55 L Respiratory Rate 5 L 13 Blood Pressure 203/88 H Pulse Oximetry 96 95 Oxygen Delivery Method 09/29/23 23:10 09/29/23 23:15 09/29/23 23:15 Temperature Pulse Rate 53 L Respiratory Rate 17 Blood Pressure 194/88 H 192/85 H Pulse Oximetry 96 Oxygen Delivery Method 09/29/23 23:20 09/29/23 23:20 09/29/23 23:25 Temperature Pulse Rate 53 L 52 L Respiratory Rate 17 15 Blood Pressure 191/91 H Pulse Oximetry 95 96 Oxygen Delivery Method 09/29/23 23:25 09/29/23 23:30 09/29/23 23:30 Temperature Pulse Rate 54 L Respiratory Rate 18 Blood Pressure 182/79 H 189/86 H Pulse Oximetry 96 Oxygen Delivery Method 09/29/23 23:35 09/29/23 23:35 09/29/23 23:40 Temperature Pulse Rate 56 L Respiratory Rate 21 Blood Pressure 209/87 H 188/85 H Pulse Oximetry 96 Oxygen Delivery Method 09/29/23 23:40 09/29/23 23:46 09/29/23 23:46 Temperature Pulse Rate 55 L 56 L Respiratory Rate 10 L 13 Blood Pressure 221/98 H Pulse Oximetry 97 96 Oxygen Delivery Method 09/29/23 23:50 09/29/23 23:50 09/29/23 23:55 Temperature Pulse Rate 56 L Respiratory Rate 12 Blood Pressure 215/94 H 207/89 H Pulse Oximetry 97 Oxygen Delivery Method 09/29/23 23:55 09/30/23 00:00 09/30/23 00:01 Temperature Pulse Rate 52 L 54 L 55 L Respiratory Rate 10 L 21 22 Blood Pressure Pulse Oximetry 96 96 96 Oxygen Delivery Method 09/30/23 00:01 09/30/23 00:03 09/30/23 00:03 Temperature Pulse Rate 55 L Respiratory Rate 11 L Blood Pressure 231/105 H 223/90 H Pulse Oximetry 96 Oxygen Delivery Method 09/30/23 00:05 09/30/23 00:05 09/30/23 00:10 Temperature Pulse Rate 57 L 54 L Respiratory Rate 17 12 Blood Pressure 211/81 H Pulse Oximetry 96 98 Oxygen Delivery Method 09/30/23 00:10 09/30/23 00:15 09/30/23 00:15 Temperature Pulse Rate 54 L Respiratory Rate 18 Blood Pressure 211/86 H 202/91 H Pulse Oximetry 97 Oxygen Delivery Method 09/30/23 00:17 09/30/23 00:20 09/30/23 00:25 Temperature Pulse Rate 53 L Respiratory Rate Blood Pressure 202/91 H 196/78 H 176/79 H Pulse Oximetry Oxygen Delivery Method 09/30/23 00:25 09/30/23 00:30 09/30/23 00:35 Temperature Pulse Rate 51 L Respiratory Rate 16 Blood Pressure 173/75 H 164/77 H Pulse Oximetry 96 Oxygen Delivery Method 09/30/23 00:41 09/30/23 00:41 09/30/23 00:50 Temperature Pulse Rate 52 L 52 L Respiratory Rate 18 16 Blood Pressure 197/77 H Pulse Oximetry 94 95 Oxygen Delivery Method 09/30/23 00:50 09/30/23 00:55 09/30/23 00:55 Temperature Pulse Rate 52 L Respiratory Rate 18 Blood Pressure 164/74 H 160/73 H Pulse Oximetry 94 Oxygen Delivery Method 09/30/23 01:00 09/30/23 01:00 09/30/23 01:14 Temperature Pulse Rate 52 L Respiratory Rate 7 L Blood Pressure 175/80 H 220/91 H Pulse Oximetry 96 Oxygen Delivery Method 09/30/23 01:14 09/30/23 01:15 09/30/23 01:15 Temperature Pulse Rate 58 L 55 L Respiratory Rate 20 7 L Blood Pressure 193/79 H Pulse Oximetry 96 96 Oxygen Delivery Method 09/30/23 01:20 09/30/23 01:20 09/30/23 01:25 Temperature Pulse Rate 52 L 51 L Respiratory Rate 5 L 5 L Blood Pressure 173/77 H Pulse Oximetry 96 95 Oxygen Delivery Method 09/30/23 01:25 09/30/23 01:30 09/30/23 01:30 Temperature Pulse Rate 51 L Respiratory Rate 6 L Blood Pressure 172/79 H 169/70 H Pulse Oximetry 95 Oxygen Delivery Method 09/30/23 01:35 09/30/23 01:35 09/30/23 01:40 Temperature Pulse Rate 52 L Respiratory Rate 6 L Blood Pressure 164/76 H 163/75 H Pulse Oximetry 95 Oxygen Delivery Method 09/30/23 01:40 09/30/23 01:45 09/30/23 01:45 Temperature Pulse Rate 51 L 51 L Respiratory Rate 6 L 6 L Blood Pressure 168/75 H Pulse Oximetry 95 96 Oxygen Delivery Method 09/30/23 01:50 09/30/23 01:50 09/30/23 01:55 Temperature Pulse Rate 51 L 50 L Respiratory Rate 18 Blood Pressure 167/74 H 167/74 H Pulse Oximetry 93 Oxygen Delivery Method 09/30/23 01:55 09/30/23 02:00 09/30/23 02:00 Temperature Pulse Rate 50 L Respiratory Rate 19 Blood Pressure 164/77 H 168/71 H Pulse Oximetry 94 Oxygen Delivery Method 09/30/23 02:05 09/30/23 02:05 09/30/23 02:10 Temperature Pulse Rate 50 L 51 L Respiratory Rate 18 10 L Blood Pressure 162/73 H Pulse Oximetry 92 93 Oxygen Delivery Method 09/30/23 02:10 09/30/23 02:15 09/30/23 02:15 Temperature Pulse Rate 52 L Respiratory Rate 18 Blood Pressure 158/69 H 160/73 H Pulse Oximetry 94 Oxygen Delivery Method 09/30/23 02:20 09/30/23 02:20 09/30/23 02:25 Temperature Pulse Rate 51 L Respiratory Rate 18 Blood Pressure 161/74 H 161/74 H Pulse Oximetry 94 Oxygen Delivery Method 09/30/23 02:25 09/30/23 02:30 09/30/23 02:30 Temperature Pulse Rate 51 L 50 L Respiratory Rate 18 18 Blood Pressure 153/63 H Pulse Oximetry 93 93 Oxygen Delivery Method 09/30/23 02:35 09/30/23 02:41 09/30/23 02:41 Temperature Pulse Rate 51 L Respiratory Rate 18 Blood Pressure 150/70 H 170/76 H Pulse Oximetry 93 Oxygen Delivery Method 09/30/23 02:45 09/30/23 02:45 09/30/23 02:50 Temperature Pulse Rate 50 L Respiratory Rate 18 Blood Pressure 166/74 H 164/73 H Pulse Oximetry 94 Oxygen Delivery Method 09/30/23 02:50 09/30/23 03:30 09/30/23 03:31 Temperature Pulse Rate 56 L 54 L 54 L Respiratory Rate 18 15 20 Blood Pressure Pulse Oximetry 94 95 95 Oxygen Delivery Method 09/30/23 03:31 09/30/23 04:00 09/30/23 04:00 Temperature Pulse Rate 59 L Respiratory Rate 18 Blood Pressure 189/84 H 168/74 H Pulse Oximetry 93 Oxygen Delivery Method 09/30/23 04:30 09/30/23 04:30 Temperature Pulse Rate 58 L Respiratory Rate 16 Blood Pressure 149/67 H Pulse Oximetry 95 Oxygen Delivery Method Medical Decision Making Differential Diagnosis Differential Diagnosis: Accelerated hypertension, anxiety component with history of hypertension Medical Records Medical records reviewed: Yes I reviewed the patient's medical records. Lab Data Lab results reviewed: Yes I reviewed the patient's lab results. 09/29/23 21:40 09/29/23 21:40 Labs: Lab Results 09/29/23 Range/Units 21:40 WBC 4.0 L (4.5-11.0) X10^3/uL RBC 3.56 L (4.0-5.2) X10^6/uL Hgb 11.5 L (12.0-16.0) g/dL Hct 33.4 L (36-46) % MCV 93.8 (80-100) fL MCH 32.4 (26-34) PG MCHC 34.6 (30-36) % RDW 14.1 (11.6-14.8) % Plt Count 258 (150-400) X10^3/uL Neut % (Auto) 42.9 L (50-75) % Lymph % (Auto) 36.9 (25-40) % Mcintosh % (Auto) 12.8 (3-14) % Eos % (Auto) 6.2 H (2-4) % Baso % (Auto) 1.2 (0-2) % Neut # (Auto) 1700 (7428-3019) /uL Lymph # (Auto) 1500 (1102-0680) /uL Mcintosh # (Auto) 500 (0-900) /uL Eos # (Auto) 200 (0-450) /uL Baso # (Auto) 0 (0-100) /uL PT 10.9 (9.4-12.5) SECONDS INR 1.0 (0.9-1.3) APTT 34 (25.1-36.5) SECONDS Sodium 131 L (137-145) mmol/L Potassium 3.9 (3.4-5.1) mmol/L Chloride 100 (98-107) mmol/L Carbon Dioxide 25 (22-32) mmol/L BUN 18 H (7-17) mg/dL Creatinine 0.57 (0.52-1.04) mg/dL Estimated GFR > 60 (>60) mL/min BUN/Creatinine Ratio 31.6 H (6-22) Glucose 108 (80-110) mg/dL Calcium 9.3 (8.4-10.2) mg/dL Magnesium 2.0 (1.6-2.3) mg/dL Total Bilirubin 0.4 (0.2-1.3) mg/dL AST 24 (14-36) IU/L ALT 17 (<35) IU/L Alkaline Phosphatase 61 (38-126) U/L Total Creatine Kinase 48 (30-135) U/L Troponin I < 0.012 (0.01-0.034) ng/mL Total Protein 6.8 (6.3-8.2) g/dL Albumin 4.3 (3.5-5.0) g/dL Globulin 2.5 (1.7-4.1) g/dL Albumin/Globulin Ratio 1.7 (1.0-2.8) Lipase 176 (23-300) U/L ECG Data Interpretation: Sinus bradycardia with rate of 54, IA interval 200, QRS 100, QTC 432. No obvious ST segment elevation or depression changes. No LVH. Normal voltage. Critical Care Time Critical Care Time Critical Care Time: Yes Total Critical Care Time: 35 Attestation: The high probability of a clinically significant, sudden or life threatening deterioration of the [cardiopulmonary] system(s) required my full and direct attention, intervention and personal management. The aggregate critical care time was [35] minutes. This time is in addition to time spent performing reported procedures but includes the following: [x] Data Review and interpretation [x] Patient assessment and monitoring of vital signs [x] Documentation [x] Medication orders and management Discharge Plan Departure Patient Disposition: Home Clinical Impression: Hypertension Instructions: DI for High Blood Pressure Activity Restrictions/Additional Instructions: Elevated blood pressures despite use of your usual regimen losartan and atenolol and hydralazine, flown by ambulance for further blood pressure control here, EKG and blood testing not suggestive of heart attack. IV hydralazine 10 mg doses given twice, blood pressure improved. Continue taking your Losortan and Hydralazine blood pressure medications at same doses for now, stope Atenolol, replace it with Labetalol at 200mg twice daily dose, as suggested by rock loader Dr. Luo per phone consult today. Follow up with your regular provider at [facility] tomorrow Sunday. Return to this/nearest emergency department for any change worsening symptoms or any concerns prior Prescriptions: New labetalol 200 mg tablet 200 mg PO BID Qty: 60 0RF Discontinued atenolol 25 mg tablet 50 mg PO BID No Action lorazepam 0.5 mg tablet 0.5 mg PO .hs prn Qty: 30 1RF Synvisc 16 mg/2 mL syringe 16 mg intra-articular QWEEK Qty: 6 0RF thyroid (pork) [MOSAICIST Thyroid] 15 mg tablet 15 mg PO DAILY Patient Comments: Take 1 tablet in addition to the 90 mg tablet thyroid (pork) [MOSAICIST Thyroid] 90 mg tablet 90 mg PO DAILY Patient Comments: Take 1 tablet in addition to the 15mg tablet (DME) Manager Ui Knee brace left See Rx Instructions .Route .MEDSUPPLY Qty: 1 0RF Rx Instructions: Use brace whenever weight bearing; cyclobenzaprine 10 mg tablet 10 mg PO BEDTIME PRN (Reason: muscle spasm) Qty: 20 0RF benzonatate 100 mg capsule 100 mg PO TID PRN (Reason: Cough) hydralazine 25 mg tablet PO losartan 50 mg tablet 50 mg PO BID Referrals: Jeronimo Stephens MD [Physician] - Black Macedo MD [Primary Care Provider] - Stand Alone Forms: Patient Portal/API
[2023-09-30] VITALS (42 sets, daily range): BP systolic 149–231; BP diastolic 63–105; PULSE 50–61; RESP 5–22; O2SAT 92–98
[2023-09-30] MEDS: HYDRALAZINE 20 MG/ML VIAL 10 MG IV (00:17)
[2023-09-30] MEDS: LABETALOL 100 MG TABLET 200 MG PO (05:42)
[2023-09-30] MEDS: HYDRALAZINE 25 MG TABLET PO (05:43)
[2023-09-30] MEDS: LOSARTAN 50 MG TABLET PO (05:43)
== END 2023-09-30 05:58 | disposition home or self-care (01) ==
PROVIDERS: Emergency Provider Emergency Medicine; PCP Family Medicine
DX: I10 Essential (primary) hypertension (principal); R07.9 Chest pain, unspecified; R00.1 Bradycardia, unspecified
CPT/HCPCS: 71045; 80053; 82550; 83690; 83735; 84484; 85025; 85610; 85730; 93005; 93010; 96374; 96376; 99284; J0360

== ENCOUNTER 2023-09-30 07:23 | Emergency (ER) | payer MEDICARE, SELFPAY ==
[2022-10-18 11:31] VITALS: BMI 23.6
[2023-09-30] VITALS (26 sets, daily range): BP systolic 79–182; BP diastolic 46–77; PULSE 49–67; RESP 9–22; TEMP 36.7; O2SAT 96–99; BMI 23.6
--- NOTE | 2023-09-30 07:45 | ED_ITS ---
HPI - General Adult General Chief complaint: Dizziness Stated complaint: dizzy Time Seen by Provider: 09/30/23 07:35 Source: patient Mode of arrival: Ambulatory History of Present Illness HPI narrative: Patient is an 87-year-old female. Has a history of high blood pressure. Was seen here in the emergency department overnight for high blood pressure. Had a fairly extensive workup. The night provider talked with Cardiology. There was some changes made to her medication. She was taken off of her atenolol put on labetalol. She was subsequently discharged home. While waiting in the waiting room she became very lightheaded and dizzy. She states she thinks she passed out for a short period of time. She checks back into the emergency department for further evaluation Related Data Home Medications Medication Instructions Recorded Confirmed benzonatate 100 mg capsule 100 mg PO TID PRN Cough 09/06/21 03/30/23 thyroid (pork) 15 mg tablet (UTILITY SALES REPRESENTATIVE 15 mg PO DAILY 09/06/21 03/30/23 Thyroid) thyroid (pork) 90 mg tablet (UTILITY SALES REPRESENTATIVE 90 mg PO DAILY 09/06/21 03/30/23 Thyroid) hydralazine 25 mg tablet mg PO 02/07/23 03/30/23 losartan 50 mg tablet 50 mg PO BID 02/07/23 03/30/23 Previous Rx's Medication Instructions Recorded lorazepam 0.5 mg tablet 0.5 mg PO .hs prn #30 tabs 11/02/22 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 Knee 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 left #1 ea 12/20/22 hylan g-f 20 16 mg/2 mL 16 mg (2 mL) intra-articular QWEEK 03/12/23 intra-articular syringe (Synvisc) #6 mL cyclobenzaprine 10 mg tablet 10 mg PO BEDTIME PRN muscle spasm 03/23/23 #20 tabs labetalol 200 mg tablet 200 mg PO BID for BP control, in 09/30/23 place of Atenolol #60 tabs Allergies Allergy/AdvReac Type Severity Reaction Status Date / Time amlodipine Allergy Mild Verified 03/30/23 13:38 epinephrine Allergy Mild Verified 03/30/23 13:38 hydrochlorothiazide Allergy Mild Verified 03/30/23 13:38 ciprofloxacin [From CIPRO] Allergy Unknown Verified 03/30/23 13:38 Sulfa (Sulfonamide Allergy Unknown Verified 03/30/23 13:38 Antibiotics) [SULFA (SULFONAMIDE ANTIBIOTICS)] epinipherine AdvReac Severe Palpitation Uncoded 03/30/23 13:38 s Review of Systems Review of Systems ROS Unobtainable: All systems reviewed & are unremarkable except as noted in HPI and below Patient History Medical History Tension headache (~1940) Fractures (~1944) Mumps (~1942) Measles (~194) Chicken pox (~1940) Heavy menstrual period History of candidiasis Unilateral primary osteoarthritis, right knee Hypothyroidism (~2009) Cervicalgia Surgical History Anesthesia History of bunionectomy (~1968) History of cataract removal with insertion of prosthetic lens (~2017) History of oral surgery History of oral surgery (~1944) History of tonsillectomy (~1941) [place] teeth removed (~1949) Family History Father History of heart disease Hypertension Mother Breast cancer Mental health problem Family/Other Multiple sclerosis Family/Other Mental health problem Social History household members: none Smoking Status: Never smoker alcohol intake: never Smoking Status: Never smoker Substance Use Type: does not use Exam Initial Vital Signs Initial Vital Signs: Vital Signs Pulse Rate 54 L 09/30/23 07:36 Respiratory Rate 12 09/30/23 07:36 Blood Pressure 124/59 L 09/30/23 07:36 Pulse Oximetry 97 09/30/23 07:36 HENMT Head: normal to inspection Resp Effort & Inspection: normal respiratory effort Cardio Rate: bradycardic GI Inspection: non-distended Neuro General: patient alert, patient awake and moves all extremities Course Orders Ordered: ED Orders 09/30/23 07:41 EKG-12 Lead Stat Discontinued Medications Acetaminophen (Acetaminophen 325 Mg Tablet) 650 mg PO NOW ONE Stop: 09/30/23 08:50 Last Admin: 09/30/23 09:09 Dose: 650 mg Documented By: RB Sodium Chloride (Normal Saline 0.9%) 1,000 mls @ 1,000 mls/hr IV BOLUS ONE Stop: 09/30/23 08:44 Last Infusion: 09/30/23 08:58 Dose: Infused Documented By: Admin: 09/30/23 07:48 Dose: 1,000 mls/hr Documented By: INDU Vital Signs Vital signs: Vital Signs - 8 hr 09/30/23 07:36 09/30/23 07:36 09/30/23 07:37 Temperature 98.1 F Pulse Rate 54 L 51 L Respiratory Rate 12 18 Blood Pressure 124/59 L 79/46 L Pulse Oximetry 97 98 Oxygen Delivery Method Room Air 09/30/23 07:40 09/30/23 07:40 09/30/23 07:45 Temperature Pulse Rate 49 L 50 L Respiratory Rate 18 17 Blood Pressure 128/61 Pulse Oximetry 98 98 Oxygen Delivery Method 09/30/23 07:45 09/30/23 07:50 09/30/23 07:50 Temperature Pulse Rate 51 L Respiratory Rate 22 Blood Pressure 139/65 145/63 H Pulse Oximetry 99 Oxygen Delivery Method 09/30/23 07:56 09/30/23 07:56 09/30/23 08:00 Temperature Pulse Rate 51 L 52 L Respiratory Rate 11 L 10 L Blood Pressure 162/71 H Pulse Oximetry 98 98 Oxygen Delivery Method 09/30/23 08:00 09/30/23 08:05 09/30/23 08:05 Temperature Pulse Rate 55 L Respiratory Rate 12 Blood Pressure 154/71 H 164/63 H Pulse Oximetry 97 Oxygen Delivery Method 09/30/23 08:10 09/30/23 08:10 09/30/23 08:15 Temperature Pulse Rate 57 L 58 L Respiratory Rate 11 L 10 L Blood Pressure 169/73 H Pulse Oximetry 97 97 Oxygen Delivery Method 09/30/23 08:15 09/30/23 08:20 09/30/23 08:20 Temperature Pulse Rate 58 L Respiratory Rate 10 L Blood Pressure 163/74 H 156/73 H Pulse Oximetry 96 Oxygen Delivery Method 09/30/23 08:25 09/30/23 08:25 09/30/23 08:30 Temperature Pulse Rate 58 L 67 Respiratory Rate 9 L 20 Blood Pressure 156/73 H Pulse Oximetry 96 96 Oxygen Delivery Method 09/30/23 08:30 09/30/23 08:35 09/30/23 08:35 Temperature Pulse Rate 60 Respiratory Rate Blood Pressure 158/70 H 162/77 H Pulse Oximetry 96 Oxygen Delivery Method 09/30/23 08:40 09/30/23 08:40 09/30/23 08:45 Temperature Pulse Rate 60 58 L Respiratory Rate 13 14 Blood Pressure 165/72 H Pulse Oximetry 96 96 Oxygen Delivery Method 09/30/23 08:45 09/30/23 08:50 09/30/23 08:50 Temperature Pulse Rate 62 Respiratory Rate 15 Blood Pressure 159/74 H 158/72 H Pulse Oximetry 96 Oxygen Delivery Method 09/30/23 08:55 09/30/23 08:55 09/30/23 09:00 Temperature Pulse Rate 67 Respiratory Rate 20 Blood Pressure 159/72 H 158/68 H Pulse Oximetry 96 Oxygen Delivery Method 09/30/23 09:00 09/30/23 09:05 09/30/23 09:05 Temperature Pulse Rate 59 L 61 Respiratory Rate 18 14 Blood Pressure 161/71 H Pulse Oximetry 97 96 Oxygen Delivery Method 09/30/23 09:10 09/30/23 09:10 09/30/23 09:16 Temperature Pulse Rate 62 63 Respiratory Rate 18 12 Blood Pressure 173/76 H Pulse Oximetry 96 96 Oxygen Delivery Method 09/30/23 09:16 09/30/23 09:29 09/30/23 09:29 Temperature Pulse Rate 62 Respiratory Rate 15 Blood Pressure 182/74 H 175/74 H Pulse Oximetry 99 Oxygen Delivery Method 09/30/23 09:30 09/30/23 09:31 09/30/23 09:31 Temperature Pulse Rate 63 Respiratory Rate 21 14 Blood Pressure 159/67 H Pulse Oximetry 99 98 Oxygen Delivery Method 09/30/23 09:35 09/30/23 09:35 Temperature Pulse Rate 61 Respiratory Rate 13 Blood Pressure 156/67 H Pulse Oximetry 97 Oxygen Delivery Method Medical Decision Making Medical Records Medical records reviewed: Yes I reviewed the patient's medical records. ECG Data Attestation: I personally reviewed and interpreted this ECG as follows: Interpretation: Sinus bradycardia ventricular rate of 58 Normal QRS QTC [address] T wave changes Discharge Plan Departure Patient Disposition: Home Clinical Impression: Lightheadedness, Hypertension Instructions: DI for Dizziness-Nonvertigo Activity Restrictions/Additional Instructions: During your last visit here your atenolol was switched to labetalol. At that visit you were instructed to take 200 mg twice a day. I suspect that this is going to be too much for you. For now I would cut this in half to 100 mg twice a day. If you find that this is too much you can even decrease it further to 100 mg once a day. Keep your scheduled appointment with your primary doctor later this week. 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
[2023-09-30] MEDS: SODIUM CHLORIDE 0.9% 1,000 ML 1000 ML IV (07:48)
[2023-09-30] MEDS: ACETAMINOPHEN 325 MG TABLET 650 MG PO (09:09)
== END 2023-09-30 09:50 | disposition home or self-care (01) ==
PROVIDERS: Emergency Provider Emergency Medicine; PCP Family Medicine
DX: R42 Dizziness and giddiness (principal); I10 Essential (primary) hypertension; R00.1 Bradycardia, unspecified
CPT/HCPCS: 93005; 93010; 96360; 99284